=== PATIENT | female | born 1955 | race Caucasian/White ===

== ENCOUNTER 2016-11-05 22:02 | Inpatient (IN) | payer BC ==
--- NOTE | ~2016-11-05 | CN ---
Consultation Report [address] [place]. [address] NAME: JOSE JACOBSON : 55 STATUS : ADM IN PAT#: [id number] AGE: 61 ADM/REG DATE : 11/05/16 MR#: [id number] REPORT SERV DATE: 11/06/16 DICTATED BY: MIR IVORY DATE: 11/06/16 REPORT STATUS : Draft TRANSCRIBED BY: EZEQUIEL DATE: 11/06/16 CONSULTATION DATE OF CONSULTATION: REASON FOR REFERRAL: Breast cancer. HISTORY OF PRESENT ILLNESS: Ms. Jacobson is a 61-year-old woman who has metastatic breast cancer that is triple negative. She is on [place] chemotherapy. She has metastases to the lung and liver. For approximately two weeks, she has had a dry hacking cough that has gradually worsened and associated with dyspnea and fever, it is now severe. She presented to the emergency room and has been admitted to the hospital. PAST MEDICAL HISTORY: 1. Breast cancer, on chemotherapy. 2. Abnormal germline genetic testing. REVIEW OF SYSTEMS: Complete review of systems was negative except as per the HPI. PHYSICAL EXAMINATION: GENERAL: Reveals a well-developed woman who is obviously uncomfortable. CARDIAC: She has a regular rate and rhythm. LUNGS: Coarse breath sounds bilaterally. DATA REVIEW: Chest x-ray shows a right hilar mass and right upper lobe consolidation versus infiltrate. CMP shows normal liver tests. There is a normal troponin. Creatinine is 0.78. CBC shows hemoglobin 8.1, WBC 8.1, platelets 234,000, MCV is 78.8. ASSESSMENT: 1. Breast cancer, metastatic, on chemotherapy. I am worried about progression. We will add a CT scan of the abdomen and pelvis to the CT scan of the chest. 2. Anemia. Check iron studies. 3. Pneumonia, on IV antibiotics, inhalers and steroids. We will follow with you. SHARLA/EZEQUIEL Mir Consultation Report [address] [place]. [address] NAME: JOSE JACOBSON EHSAN : 55 STATUS : ADM IN PAT#: [id number] AGE: 61 ADM/REG DATE : 11/05/16 MR#: [id number] REPORT SERV DATE: 11/06/16 DICTATED BY: MIR IVORY DATE: 11/06/16 REPORT STATUS : Draft TRANSCRIBED BY: MODL DATE: 11/06/16 Ady Ivory / [id number] CC: Lucho Echevarria MD
--- NOTE | ~2016-11-05 | DS ---
Discharge Summary [facility] [address] [place]. [address] NAME: JOSE JACOBSON : 55 STATUS : DIS IN PAT#: [id number] AGE: 61 ADM/REG DATE : 11/05/16 MR#: [id number] REPORT SERV DATE: 11/08/16 DICTATED BY: LUCHO WALKER DATE: 11/07/16 REPORT STATUS : Draft TRANSCRIBED BY: MODL DATE: 11/07/16 ADMISSION DATE: 11/05/2016 DISCHARGE DATE: 11/07/2016 DISCHARGE DIAGNOSES: 1. Metastatic triple negative breast cancer with metastatic disease to lungs and bones. The patient follows with Dr. Child. 2. Postobstructive pneumonia with sepsis. 3. Reactive airway disease. CONSULTS: Oncology, Dr. Child. PROCEDURES: None. IMAGES: CT of the chest, abdomen, and pelvis revealed 1. Enlarging right upper lobe lung mass that measures 6.7 x 5.8 cm which likely represented a lung carcinoma. 2. Enlarging bilateral mediastinal and hilar adenopathy consistent with metastatic disease. 3. Postobstructive pneumonitis in the right upper lobe. 4. Inhomogeneous fatty infiltration of the liver without evidence of metastatic disease. 5. Severely atrophic left kidney related to severe hydronephrosis, this is a chronic finding. 6. Multiple small lytic lesions within the T-spine involving the T3, T4, T6, and T8 consistent with metastatic disease. HOSPITAL COURSE: This is a 61-year-old lady who was admitted to the hospital with a right upper lung infiltrate versus lung mass. For details please refer to H and P by Dr. Griffith. The patient was admitted and was started on broad-spectrum antibiotics with vancomycin and cefepime. By the second day of the hospital stay, patient remained afebrile and hemodynamically stable with normal white blood cell count. CT of the chest, abdomen, and pelvis was performed on the second day, and after that the patient's antibiotics were deescalated to doxycycline. The patient was seen by Dr. Child who felt that the patient may benefit from radiation therapy to the lung mass as an outpatient. The patient showed significant clinical improvement with supportive care along with antitussives. The patient also seemed to have responded to antibiotic therapy. Throughout the entire hospital stay, the patient remained afebrile with normal white blood cell count. The patient also has been on room air without any difficulty breathing at baseline. The patient is now being discharged home with close outpatient followup plans with Dr. Child. DISCHARGE MEDICATIONS: 1. Tessalon Perles 100 mg p.o. t.i.d. p.r.n. 2. Doxycycline 100 mg p.o. b.i.d. x5 additional days. 3. Prednisone 40 mg p.o. daily for 3 additional days. Otherwise, no changes to home medications. Discharge Summary [address] [address] NAME: JOSE JACOBSON : 55 STATUS : DIS IN PAT#: [id number] AGE: 61 ADM/REG DATE : 11/05/16 MR#: [id number] REPORT SERV DATE: 11/08/16 DICTATED BY: LUCHO WALKER DATE: 11/07/16 REPORT STATUS : Draft TRANSCRIBED BY: EZEQUIEL DATE: 11/07/16 DISPOSITION: Home. FOLLOWUP: Please follow up with Dr. Child next Thursday as already scheduled. A total of 25 minutes spent in coordinating this patient's discharge today. Emery/EZEQUIEL Lucho Walker MD / [id number] CC: Lucho Walker MD
--- NOTE | ~2016-11-05 | HP ---
History And Physical [place] [address] [facility] [place]. [address] NAME: JOSE JACOBSON : 55 STATUS : ADM IN PAT#: [id number] AGE: 61 ADM/REG DATE : 11/05/16 MR#: [id number] REPORT SERV DATE: 11/06/16 DICTATED BY: DEVON KAISER DATE: 11/06/16 REPORT STATUS : Draft TRANSCRIBED BY: MODL DATE: 11/06/16 DATE OF ADMISSION: 11/05/2016 CHIEF COMPLAINT: This 61-year-old female, presenting with metastatic breast cancer and now evidence of increasing shortness of breath with fevers. HISTORY OF PRESENTING ILLNESS: The patient's history was obtained through careful interview with the patient and her coupled with [facility] and [facility] medical records. The patient has metastatic breast cancer in 2014 that is considered "triple negative" followed by Dr. Child and Dr. Leblanc, radiation oncologist. She has known bony metastases and has undergone chemotherapy and radiation therapy apparently. Her last chemotherapy was just on the day prior to admission, she seemed to tolerate it well, but then on the day leading up to this admission had developed diaphoresis and a fever up to 102.0. She had no chills. This patient states that she has been having respiratory issues for several months, but it has progressed over these last few weeks. She describes a cough productive of a clear sputum. She has had shortness of breath characterized by dyspnea on exertion with a prominent wheeze. She has had lightheadedness associated with exertion and shortness of breath. She recently had finished a complete course of a Z-Herson without any improvement. She describes the chest discomfort "all through" her chest, really nonfocal, but it is a sharp discomfort, exacerbated by coughing, and deep breathing and exertion, a 7/10 severity. No nausea or vomiting. No change of bowel or bladder habit. No abdominal pain. No confusion. REVIEW OF SYSTEMS: Otherwise, a 14-point review of systems was obtained and was negative. PAST MEDICAL HISTORY: 1. Breast cancer, diagnosed 2014, triple negative, followed by Dr. Child and Dr. Leblanc with bony metastases. 2. Gastroesophageal reflux disorder. 3. Depression. 4. Hypothyroidism. 5. Atrophic kidney. 6. Left hydronephrosis, seen by Dr. Yepez. 7. Pneumonia. 8. Elevated cholesterol. PAST SURGICAL HISTORY: 1. Left mastectomy. History And Physical [address] [address] NAME: JOSE JACOBSON : 55 STATUS : ADM IN PAT#: [id number] AGE: 61 ADM/REG DATE : 11/05/16 MR#: [id number] REPORT SERV DATE: 11/06/16 DICTATED BY: DEVON KAISER DATE: 11/06/16 REPORT STATUS : Draft TRANSCRIBED BY: EZEQUIEL DATE: 11/06/16 2. Right hip surgery. 3. Appendectomy. ALLERGIES: PENICILLIN, CRESTOR, MORPHINE, LEVAQUIN, STATIN. SOCIAL HISTORY: No tobacco abuse. Drinks alcohol socially. She is . Has no children. 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 FAMILY HISTORY: Mother with breast cancer. Father with prostate cancer. CURRENT MEDICATIONS: Include Z-Herson completed on 11/04/2016, calcium, vitamin D, Prozac 20 mg p.o. daily, Synthroid 100 mcg daily, omeprazole 20 mg daily, Zofran p.r.n., and chemotherapy. PHYSICAL EXAMINATION: VITAL SIGNS: Temperature 102.0, pulse 110, blood pressure 113/68, respiratory rate 23, O2 saturation 93% on room air. GENERAL: A pleasant, cooperative female, distressed from coughing. HEENT: Pupils equal, round, and reactive to light. No conjunctival pallor. No scleral icterus. Nares are patent. Oropharynx is clear of obstruction. Moist mucous membranes. NECK: Trachea midline. No thyromegaly. LYMPH: No cervical lymphadenopathy. No supraclavicular lymphadenopathy RESPIRATORY: The patient has prominent expiratory wheeze on exam. Harsh upper respiratory rhonchi. There is diminished breath sounds throughout portions of her right lung, but I do not appreciate focal egophony. The patient has a labored respiratory effort. CARDIOVASCULAR: Tachycardic. Regular rhythm. No murmurs, rubs, or gallops. No extremity edema is appreciated. ABDOMEN: Soft, nontender, nondistended. Normal bowel sounds auscultated throughout. No hepatosplenomegaly. DERMATOLOGICAL: Warm and dry. EXTREMITIES: No pallor. No cyanosis. PSYCHIATRIC: Normal affect. Good mood. Alert and oriented x3. LABORATORY DATA: White blood count 7.4, hemoglobin 9.1, hematocrit 29.3, platelets 513. Sodium 142, potassium 4.1, chloride 108, bicarb 24, BUN 12, creatinine 0.91, glucose 115, albumin 2.4. Mononucleosis screen negative. Influenza negative. Lactic acid 1.6. Liver enzymes within limits. STUDIES: Chest x-ray by my own evaluation shows right upper lung pneumonia or mass. ASSESSMENT AND PLAN: 1. Sepsis. Presumptive diagnosis, post chemotherapy with fever of 102.0, tachycardia, tachypnea. Stable white blood cell though of 7.4 and normal lactic acid, but the patient may have infiltrate in the right upper lung. Check blood cultures. Place on empiric IV cefepime and IV vancomycin for now. 2. Right lung mass/infiltrate. Check a CT scan of the chest with contrast on the morning of 11/06/2016. History And Physical [address] [address] NAME: JOSE JACOBSON : 55 STATUS : ADM IN [facility]#: [id number] AGE: 61 ADM/REG DATE : 11/05/16 MR#: [id number] REPORT SERV DATE: 11/06/16 DICTATED BY: DEVON KAISER DATE: 11/06/16 REPORT STATUS : Draft TRANSCRIBED BY: EZEQUIEL DATE: 11/06/16 3. Metastatic breast cancer to the bones with chemotherapy and radiation. Consult Dr. Child, oncologist. 4. Reactive airway disease with prominent wheeze. Place on Solu-Medrol IV and DuoNeb nebulizers. KPL/MODDary Devon Kaiser M.D. / [id number] CC: MD Claudia Augustin M.D. Edward Arrowsmith, M.D.
[2016-11-05 20:38] LABS: BASOPHILS 0.3 %; BASOPHILS ABSOLUTE 0.02 10/3/uL (0.0-0.16); EOSINOPHILS 0 %; HEMATOCRIT 29.3 % (36.0-48.0); HEMOGLOBIN 9.1 g/dL (12.0-16.0); IMMATURE GRANULOCYTES 0.1 %; IMMATURE GRANULOCYTES ABSOLUTE 0.01 10/3/uL (0.0-0.11); LYMPHOCYTES 11.9 %; LYMPHOCYTES ABSOLUTE 0.88 10/3/uL (0.67-4.30); MANUAL DIFF NO %; MEAN CORPUS HGB CONC 31.1 g/dL (32.0-36.0); MEAN CORPUSCULAR HEMOGLOB 24.3 pg (26.0-34.0); MEAN CORPUSCULAR VOLUME 78.3 fL (80-100); MEAN PLATELET VOLUME 8.8 fL (9.2-13.0); MONOCYTES 7.8 %; MONOCYTES ABSOLUTE 0.58 10/3/uL (0.21-1.20); NEUTROPHILS 79.9 %; NEUTROPHILS ABSOLUTE 5.93 10/3/uL (2.02-8.40); PLATELET COUNT 513 10/3/uL (150-400); RBC DISTRIBUTION WIDTH 20.7 % (12.0-16.0); RED CELL COUNT 3.74 10/6/uL (4.0-5.6); WHITE BLOOD CELLS 7.4 10/3/uL (4.5-10.5)
[2016-11-05 20:45] LABS: ASCORBIC ACID (UR NOT ORDER) NEG (NEG); BILIRUBIN, URINE NEGATIVE (NEG); ER URINALYSIS TAT 0 Hrs 11 Mins; KETONE, URINE NEGATIVE (NEG); LEUKOCYTE ESTERASE(NOT OR NEG (NEG); NITRITE (URINE) NEG (NEG); WBC (NOT ORDERED) (RFLEX) 2 (0-5)
[2016-11-05 20:56] LABS: A/G RATIO 0.6 (0.7-1.9); ALBUMIN 2.4 G/DL (3.5-5.0); ALKALINE PHOSPHATASE 97 U/L (45-117); CALCIUM, SERUM 7.9 MG/DL (8.5-10.4); CHLORIDE, SERUM 108 MMOL/L (96-112); CO2 (CARBON DIOXIDE) 24 MMOL/L (24-34); CREATININE 0.91 MG/DL (0.55-1.02); GFR AFRICAN AMERICAN 79 ML/MIN (>=60); GFR NON AFRICAN AMERICAN 68 ML/MIN (>=60); GLOBULIN 3.9 G/DL (2.5-4.1); POTASSIUM, SERUM 4.1 MMOL/L (3.5-5.3); SGOT(AST) 39 U/L (5-40); SGPT(ALT) 23 U/L (5-65); SODIUM, SERUM 142 MMOL/L (135-148); TOTAL BILIRUBIN 0.7 MG/DL (0-1.2); TOTAL PROTEIN 6.3 G/DL (6.0-8.5)
[2016-11-05 20:57] LABS: BUN (BLOOD UREA NITROGEN) 12 MG/DL (6-23); GLUCOSE, SERUM 115 MG/DL (60-99)
[~2016-11-05 22:02] MED LIST: ACET500CAP PO; ASAB PO; C5 PO; DETROLLA4 PO; ENDOCET1 TAB PO; HERBALS; HYCODAN1 M1 PO; LEVOTHYROXIN100 MCG PO; MUCINEX600 MG PO; MULTIVIT/MIN PO; PCET PO; PRILO PO; PROAIR HFA INH; PROZAC PO; ULTRAM50 PO; VITAMINS
[2016-11-05 22:10] LABS: LACTATE 1.6 MMOL/L (0.3-2.4)
[2016-11-05 22:13] LABS: INFLUENZA A SCREEN NEGATIVE (NEGATIVE); INFLUENZA B SCREEN NEGATIVE (NEGATIVE)
[2016-11-05] MEDS ORDERED: SYN1 PO (22:57)
[2016-11-05] MEDS ORDERED: Z-PAK PO (22:58)
[2016-11-05] MEDS ORDERED: PRILOSEC OTC20 MG PO (22:58)
[2016-11-05] MEDS ORDERED: CALTRA600D PO (22:59)
[2016-11-05] MEDS ORDERED: PROZAC PO (22:59)
[2016-11-05] MEDS ORDERED: ZOFRANODT8 PO (23:03)
[2016-11-05] MEDS ORDERED: CALCIUM IV (23:03)
[2016-11-05] MEDS ORDERED: CHEMOTHERAPY (23:06)
[2016-11-06 04:51] LABS: BASOPHILS 0.1 %; BASOPHILS ABSOLUTE 0.01 10/3/uL (0.0-0.16); EOSINOPHILS 0 %; HEMOGLOBIN 8.1 g/dL (12.0-16.0); IMMATURE GRANULOCYTES 0.4 %; IMMATURE GRANULOCYTES ABSOLUTE 0.03 10/3/uL (0.0-0.11); LYMPHOCYTES 8.7 %; LYMPHOCYTES ABSOLUTE 0.71 10/3/uL (0.67-4.30); MEAN CORPUS HGB CONC 31.6 g/dL (32.0-36.0); MEAN CORPUSCULAR HEMOGLOB 24.9 pg (26.0-34.0); MEAN CORPUSCULAR VOLUME 78.8 fL (80-100); MEAN PLATELET VOLUME 8.7 fL (9.2-13.0); MONOCYTES 6.3 %; MONOCYTES ABSOLUTE 0.51 10/3/uL (0.21-1.20); NEUTROPHILS 84.5 %; NEUTROPHILS ABSOLUTE 6.87 10/3/uL (2.02-8.40); PLATELET COUNT 434 10/3/uL (150-400); RBC DISTRIBUTION WIDTH 20.7 % (12.0-16.0); RED CELL COUNT 3.25 10/6/uL (4.0-5.6); WHITE BLOOD CELLS 8.1 10/3/uL (4.5-10.5)
[2016-11-06 04:54] LABS: HEMATOCRIT 25.6 % (36.0-48.0); MANUAL DIFF NO %
[2016-11-06 04:57] LABS: INTERNATIONAL NORMAL RATI 1.2 UNITS (-); PROTIME (NOT ORD) 15.1 SEC (12.0-14.5)
[2016-11-06 04:58] LABS: PARTIAL THROMBO TIME 35.9 SEC (22.5-37.2)
[2016-11-06 05:20] LABS: A/G RATIO 0.8 (0.7-1.9); ALBUMIN 2.6 G/DL (3.5-5.0); BUN (BLOOD UREA NITROGEN) 10 MG/DL (6-23); CALCIUM, SERUM 7.7 MG/DL (8.5-10.4); CHLORIDE, SERUM 111 MMOL/L (96-112); CO2 (CARBON DIOXIDE) 22 MMOL/L (24-34); CREATININE 0.78 MG/DL (0.55-1.02); GFR AFRICAN AMERICAN 95 ML/MIN (>=60); GFR NON AFRICAN AMERICAN 82 ML/MIN (>=60); GLOBULIN 3.4 G/DL (2.5-4.1); GLUCOSE, SERUM 115 MG/DL (60-99); SGOT(AST) 33 U/L (5-40); SGPT(ALT) 20 U/L (5-65); SODIUM, SERUM 143 MMOL/L (135-148); TOTAL BILIRUBIN 0.4 MG/DL (0-1.2); TROPONIN I <0.02 NG/ML (<0.05)
[2016-11-06 05:26] LABS: ALKALINE PHOSPHATASE 79 U/L (45-117)
[2016-11-06 09:39] LABS: FERRITIN 376 NG/ML (8-252)
[2016-11-07 05:20] LABS: BASOPHILS 0 %; EOSINOPHILS 0 %; HEMATOCRIT 26.2 % (36.0-48.0); HEMOGLOBIN 8.2 g/dL (12.0-16.0); IMMATURE GRANULOCYTES 0.3 %; IMMATURE GRANULOCYTES ABSOLUTE 0.02 10/3/uL (0.0-0.11); LYMPHOCYTES 4.6 %; LYMPHOCYTES ABSOLUTE 0.36 10/3/uL (0.67-4.30); MEAN CORPUS HGB CONC 31.3 g/dL (32.0-36.0); MEAN CORPUSCULAR HEMOGLOB 24.6 pg (26.0-34.0); MEAN CORPUSCULAR VOLUME 78.7 fL (80-100); MEAN PLATELET VOLUME 8.5 fL (9.2-13.0); MONOCYTES 2.3 %; MONOCYTES ABSOLUTE 0.18 10/3/uL (0.21-1.20); NEUTROPHILS 92.8 %; NEUTROPHILS ABSOLUTE 7.27 10/3/uL (2.02-8.40); PLATELET COUNT 379 10/3/uL (150-400); RBC DISTRIBUTION WIDTH 21.1 % (12.0-16.0); RED CELL COUNT 3.33 10/6/uL (4.0-5.6); WHITE BLOOD CELLS 7.8 10/3/uL (4.5-10.5)
[2016-11-07 05:23] LABS: MANUAL DIFF NO %
[2016-11-07 05:47] LABS: BUN (BLOOD UREA NITROGEN) 12 MG/DL (6-23); CHLORIDE, SERUM 112 MMOL/L (96-112); CO2 (CARBON DIOXIDE) 21 MMOL/L (24-34); CREATININE 0.82 MG/DL (0.55-1.02); GFR AFRICAN AMERICAN 90 ML/MIN (>=60); GFR NON AFRICAN AMERICAN 77 ML/MIN (>=60); POTASSIUM, SERUM 4.4 MMOL/L (3.5-5.3); SODIUM, SERUM 143 MMOL/L (135-148)
[2016-11-07 05:50] LABS: GLUCOSE, SERUM 187 MG/DL (60-99)
[2016-11-07] MEDS ORDERED: TESS PO (10:39)
[2016-11-07] MEDS ORDERED: MEDROLPAK4 PO (10:41)
[2016-11-07] MEDS ORDERED: MONODOX100 MG PO (10:41)
== END 2016-11-07 12:46 | disposition home or self-care (01) | DRG 871 ==
LOC: ER 22:02 → 6NO 22:48
PROVIDERS: Emergency Medicine; Hospitalist; Internal Medicine; Nurse Practitioner
DX: A41.9 Sepsis, unspecified organism (principal); J18.9 Pneumonia, unspecified organism; C78.00 Secondary malignant neoplasm of unspecified lung; C79.51 Secondary malignant neoplasm of bone; N13.30 Unspecified hydronephrosis; F32.9 Major depressive disorder, single episode, unspecified; E03.9 Hypothyroidism, unspecified; Z87.01 Personal history of pneumonia (recurrent); E78.00 Pure hypercholesterolemia, unspecified; J45.909 Unspecified asthma, uncomplicated; N26.1 Atrophy of kidney (terminal); K21.9 Gastro-esophageal reflux disease without esophagitis; D64.9 Anemia, unspecified; Z85.3 Personal history of malignant neoplasm of breast; Z88.0 Allergy status to penicillin; Z90.12 Acquired absence of left breast and nipple; Z88.8 Allergy status to other drugs, medicaments and biological substances; Z88.5 Allergy status to narcotic agent; Z88.1 Allergy status to other antibiotic agents; Z92.21 Personal history of antineoplastic chemotherapy; Z92.3 Personal history of irradiation
CPT/HCPCS: 71020; 71260; 74177; 80048; 80053; 81001; 82728; 83605; 83735; 83880; 84145; 84443; 84484; 85025; 85610; 85730; 86308; 87040; 87070; 87205; 87449; 87804; 94640; 99285; A9270-GY; J0692; J2920; J3370; P9047; Q9967

== ENCOUNTER 2016-11-15 19:22 | Inpatient (IN) | payer BC ==
--- NOTE | ~2016-11-15 | OP ---
Record Of Operation [facility] [address] [place]. [address] NAME: JOSE JACOBSON : 55 STATUS : ADM IN PAT#: [id number] AGE: 61 ADM/REG DATE : 11/15/16 MR#: [id number] REPORT SERV DATE: 11/26/16 DICTATED BY: YINKA WHELAN DATE: 11/26/16 REPORT STATUS : Draft TRANSCRIBED BY: EZEQUIEL DATE: 11/26/16 DATE OF PROCEDURE: 11/26/2016 PREOPERATIVE DIAGNOSIS: Metastatic breast cancer. POSTOPERATIVE DIAGNOSIS: Metastatic breast cancer. OPERATION PERFORMED: Right internal jugular Port-A-Cath placement under ultrasound and fluoroscopic guidance. SURGEON: Yinka Whelan M.D. ANESTHESIA: General. ESTIMATED BLOOD LOSS: Less than 10 mL. IV FLUIDS: Adequate. DESCRIPTION OF OPERATION: After appropriate sedation, the patient was prepped and draped in proper sterile fashion. Ultrasound probe was placed over the right neck. She had a patent and pliable right internal jugular vein. Right chest wall and right neck were infiltrated with local anesthesia. Right internal jugular vein was cannulated using a 14-gauge needle under ultrasound guidance. A guidewire was fed under fluoroscopic guidance just above the right heart. A transverse incision was made at the right chest wall. Subcutaneous tissues were incised down to pectoralis fascia, and pocket was bluntly dissected. Introducer sheath was placed over the guidewire. A catheter was then fed through the introducer sheath with the tip being just above the right heart under fluoroscopic guidance. The catheter was tunneled subcutaneously to the port pocket and secured to the port. Port was secured to the chest wall using 3-0 Vicryl suture. The port was flushed and aspirated, flushed and aspirated easily. The skin was closed using interrupted 3-0 Vicryl sutures. Steri-Strips and dressings were then placed. The patient was taken to the recovery room in satisfactory condition. MARIE/EZEQUIEL Yinka Whelan M.D. / [id number] CC: MD Claudia Junior II, M.D.
--- NOTE | ~2016-11-15 | OP ---
Record Of Operation [facility] [address] [place]. [address] NAME: JOSE JACOBSON : 55 STATUS : ADM IN PAT#: [id number] AGE: 61 ADM/REG DATE : 11/15/16 MR#: [id number] REPORT SERV DATE: 11/19/16 DICTATED BY: ANGELA APPIAH DATE: 11/19/16 REPORT STATUS : Draft TRANSCRIBED BY: MODL DATE: 11/19/16 DATE OF PROCEDURE: 11/19/2016 PROCEDURE: Bronchoscopy with bronchoalveolar lavage, airway inspection, endobronchial ultrasound and transbronchial needle aspiration. PREOPERATIVE DIAGNOSIS: Cancer, not otherwise specified. POSTOPERATIVE DIAGNOSIS: Endobronchial cancer and lung cancer, unknown if this is a primary or metastatic. PROCEDURE NOTE: The patient was brought down to the bronchoscopy suite, the patient was placed with an LMA for airway protection, and Anesthesia provided the general anesthesia. We inserted the bronchoscope through the vocal cords, lidocaine down the trachea. The patient had a definite endobronchial disease above the alissa, right greater than left on the trachea and greater than 50% right mainstem occlusion. She does have a tumor blocking the right upper lobe and the past that she has endobronchial erythema and swelling all the way down to the right middle lobe orifice, presumably probably also invasion of the tumor down to the right BI. There was easy friability of the tumor. We obtained a BAL from the right middle lobe. Left side had no significant abnormalities. We then switched to the endobronchial ultrasound and the patient had significant amount of tumor throughout the right mainstem and above the alissa. We obtained a transbronchial needle aspiration via EBUS of the ATS 4R lymph node, which almost seemed to be confluent with the tumor. We obtained two slides and eight cell blocks for total of 10 passes. Pathology reviewed the cases, which was consistent with underlying cancer of unknown etiology at this moment in time. OUTCOME: Successful bronchoscopy with airway inspection, lavage of the right middle lobe, and a biopsy of the right upper lobe tumor. Current recommendation is to have Interventional Pulmonary evaluate this patient for what most likely needs to have an underlying Y stent versus other modality. Also, we will discuss the need of possible radiation at this site. NICOLEQ/EZEQUIEL Angela Appiah MD / [id number] CC: MD Claudia Healy M.D.
--- NOTE | ~2016-11-15 | CN ---
Consultation Report [facility] [address] [place]. [address] NAME: JOSE JACOBSON : 55 STATUS : ADM IN [facility]#: [id number] AGE: 61 ADM/REG DATE : 11/15/16 MR#: [id number] REPORT SERV DATE: 11/18/16 DICTATED BY: ANGELA APPIAH DATE: 11/17/16 REPORT STATUS : Draft TRANSCRIBED BY: MODDary DATE: 11/17/16 CONSULTATION NOTE DATE OF CONSULTATION: 11/17/2016 REQUESTING PHYSICIAN: Umair Boss II, MD REASON FOR CONSULTATION: Fevers, chills, and concern of postobstructive pneumonia. HISTORY OF PRESENT ILLNESS: Mrs. Jacobson is a 61-year-old female, with a past medical history of known metastatic breast cancer, who has a new lesion in the right upper lobe with what looks to be a postobstructive pneumonia. The patient states that her symptoms have started over the last several days. These symptoms of fevers and chills continue to become worse, she is producing a very little amount of sputum. She presented back to the hospital, due to these symptoms and had a CT scan, which shows the above-named abnormalities. Primary team was concerned of a postobstructive pneumonia. The patient is to start radiation to this site here in the next several days. PAST MEDICAL HISTORY: Metastatic breast cancer, with mets to the lung and bone. However, this has not been biopsied as far as I can tell. Hypothyroidism, left mastectomy, right hip surgery, and appendectomy. MEDICATIONS: Medication list reviewed, the patient is on Lovenox, antibiotics, DuoNeb, meropenem, and vancomycin. ALLERGIES: ROSUVASTATIN, PENICILLIN, SIMVASTATIN, LEVAQUIN, AND MORPHINE. SOCIAL HISTORY: No alcohol use that is considered daily. She is with at the bedside. No tobacco use. FAMILY HISTORY: Father had prostate cancer and mother had breast cancer. REVIEW OF SYSTEMS: All pertinent review of systems are reviewed and is otherwise negative. PHYSICAL EXAMINATION: VITAL SIGNS: Temperature maximum 102.3, heart rate around 95 to 114, respiratory rate 18 to 20, oxygen saturation around 93% to 96% on 1 L nasal cannula, and blood pressure is adequate. GENERAL: The patient is alert and oriented, in no acute distress. HEENT: No cervical lymphadenopathy. NECK: Supple. PULMONARY: The patient has mild rhonchorous breath sounds, but otherwise, no wheezing. Good air movement. Consultation Report [address] [place]. [address] NAME: JOSE JACOBSON : 55 STATUS : ADM IN [facility]#: [id number] AGE: 61 ADM/REG DATE : 11/15/16 MR#: [id number] REPORT SERV DATE: 11/18/16 DICTATED BY: ANGELA APPIAH DATE: 11/17/16 REPORT STATUS : Draft TRANSCRIBED BY: EZEQUIEL DATE: 11/17/16 CARDIAC: Regular rate, no murmurs. ABDOMEN: Soft, nontender, and nondistended. EXTREMITIES: No lower extremity edema. LABORATORY DATA: Anemia is noted with mild lymphopenia. Platelet count is 419. Negative procalcitonin. INR 1.2. Good kidney function. IMAGING: CT scan, which shows the encroaching right upper lobe mass. ASSESSMENT AND PLAN: Mrs. Jacobson is a 61-year-old female, with a past medical history noted above, who presents with possibly a right upper lobe, either primary neoplasm versus metastatic breast cancer. We will conduct an airway examination, bronchoscopy for biopsy, and bronchoalveolar lavage. If patient needs more extensive treatment such as stent placement and/or tumor debulking, may consider Interventional Pulmonary consultation. The patient is to get a right upper lobe radiation which made negate the need for Interventional Pulmonary, however, the patient's clinical course will be examined. Thank you very much for this consultation and allowing us to participate in your patient's care. Please call us with any further questions or concerns, we will continue to follow. HFQ/EZEQUIEL Angela Appiah MD / [id number] CC: MD Claudia Junior II, M.D.
--- NOTE | ~2016-11-15 | HP ---
History And Physical [address] [place]. [address] NAME: JOSE JACOBSON : 55 STATUS : ADM IN [facility]#: [id number] AGE: 61 ADM/REG DATE : 11/15/16 MR#: [id number] REPORT SERV DATE: 11/16/16 DICTATED BY: EDUARDO DALEY DATE: 11/15/16 REPORT STATUS : Draft TRANSCRIBED BY: MODL DATE: 11/15/16 DATE OF ADMISSION: 11/15/2016 CHIEF COMPLAINT: Fever and chills. HISTORY OF PRESENT ILLNESS: This is a 61-year-old female with a history of metastatic breast cancer to the lung and bone, on chemotherapy, followed by Dr. Child, who presents to the emergency room at [facility] with the above- mentioned complaint. History is obtained from the patient, her who is at bedside, and reviewing data available on the [facility] system. According to Mrs. Jacobson, she was being treated for her cancer, and she recently has been found to have a lung mass with possibly compression on to the bronchus, followed by postobstructive pneumonia for which she was treated as an inpatient last week. She had IV antibiotics, which were be escalated and then she was sent home. Unfortunately after she got home, a couple of days later, her symptoms returned. She started having some low-grade fevers. But in the last three to four days, she started having increasing temperatures, and her says it has been up to 103 degrees Fahrenheit. They finally decided to come to the emergency room because today and the day before, she started having chills and weakness as well. In the emergency room, initial workup revealed that she had a febrile illness, sepsis and chest x-ray showed right mediastinal mass, which is slightly improved compared to prior films. She also presented with hypotension with a blood pressure of 94/57. Hospitalist Service was asked to admit her for further evaluation and treatment. At the time of my evaluation, she denied any chest pain or palpitations. She had no orthopnea. She did have an intractable cough, which was productive of clear sputum without any purulent material or blood. She had no night sweats or weight loss. She has had no recent falls or loss of consciousness. She did have fever and chills at home as mentioned above, up to 103 degrees Fahrenheit. She has had no nausea, vomiting, diarrhea, hematemesis, hematochezia, or hematuria. No other history of recent travel or exposures. She is scheduled to start radiation therapy in about three to four days. PAST MEDICAL HISTORY: Significant for metastatic breast cancer with mets to the lung and bone especially the spine and has just finished chemotherapy, followed by Dr. Child. She has hypothyroidism, atrophic left kidney, and recent post obstructive pneumonia as well. She has had a left mastectomy, right hip surgery, and appendectomy. SOCIAL HISTORY: She does not smoke, drink, or use recreational drugs. FAMILY HISTORY: Noncontributory. MEDICATIONS: At home were reviewed by me in the chart today and reordered by me. REVIEW OF SYSTEMS: History And Physical [address] [address] NAME: JOSE JACOBSON : 55 STATUS : ADM IN [facility]#: [id number] AGE: 61 ADM/REG DATE : 11/15/16 MR#: [id number] REPORT SERV DATE: 11/16/16 DICTATED BY: EDUARDO DALEY DATE: 11/15/16 REPORT STATUS : Draft TRANSCRIBED BY: EZEQUIEL DATE: 11/15/16 As in history of present illness. All other systems were reviewed in detail and are quite unremarkable. PHYSICAL EXAMINATION: GENERAL: This is a pleasant 61-year-old, not in any acute distress. HEENT: Her head is atraumatic, normocephalic. She is alert, awake, oriented to time, place, and person. Pupils are equal, reacting to light and accommodating. External ocular muscles are intact. Membranes are moist and pink. Sclerae are nonicteric. NECK: Supple with no jugular venous distention, lymphadenopathy, or thyromegaly. LUNGS: Clear to auscultation with no wheezes, rubs, or crackles. HEART: Heart sounds were regular with no murmurs, rubs, or gallops. ABDOMEN: Soft, nontender. Bowel sounds are present. EXTREMITIES: Showed no cyanosis, clubbing, or edema. NEUROLOGIC: Grossly intact. No focal sensory or motor deficits. Higher functions appeared intact. Gait was not examined. VITAL SIGNS: Her vital signs today showed a temperature of 103.2 degrees Fahrenheit, pulse 125, respirations 20 a minute, blood pressure upon arrival was 94/57, oxygen saturations were 95%, breathing 2 L of oxygen via nasal cannula. LABORATORY DATA: Reviewed on the [facility] system showed a sodium of 140, potassium 4.5, chloride 108, CO2 of 24, BUN was 12 with a creatinine of 1.06, blood glucose was 111, calcium was 7.8 today. Magnesium was not checked. Her troponin was 0.02. BNP was 13.6. Lactate was 1.4. CBC showed a white blood cell count of 3300, hemoglobin was 8.8, hematocrit 28.5, and platelet count was 565,000. Urinalysis was grossly unremarkable. Films of the chest x-ray were reviewed by me on the PACS today and interpreted by me. Today's films were compared to prior chest x-rays available on the PACS as well. Compared to prior films, the right mediastinal and lung mass have resolved to a slight degree. There is no other lobar consolidations or effusions seen. A 12-lead EKG done in the emergency room was reviewed and interpreted by me. Per my interpretation, there is sinus tachycardia at a rate of 124 without any other changes. IMPRESSION: 1. Febrile illness. 2. Sepsis. 3. Postobstructive pneumonia and sepsis. 4. Metastatic breast cancer with mets to the lung and bone, status post chemotherapy. 5. Hypotension. 6. Hypothyroidism. PLAN: We will admit Mrs. Jacobson to the Hospitalist Service with telemetry for close monitoring. After cultures are drawn, we will start her on empiric IV antibiotics and bolus with fluids and continue maintenance therapy as well. We will also follow her lactate levels and procalcitonin levels. Check her random cortisol level. We will add bronchodilators and continue her supplemental oxygen therapy and add mucolytics to her regimen as well. She will also be provided with antitussives. We will check her thyroid function and continue replacement therapy and place her on low molecular weight heparin for DVT prophylaxis while here. We will also consult Dr. Child to see her while she is History And Physical [address] [place]. [address] NAME: JOSE JACOBSON : 55 STATUS : ADM IN [facility]#: [id number] AGE: 61 ADM/REG DATE : 11/15/16 MR#: [id number] REPORT SERV DATE: 11/16/16 DICTATED BY: EDUARDO DALEY DATE: 11/15/16 REPORT STATUS : Draft TRANSCRIBED BY: EZEQUIEL DATE: 11/15/16 here. I have discussed the above plans with the patient and her . Questions were answered. They are agreeable to the above recommendations. Please see today's orders for details. Hospitalist Service will be following her during her stay here. /EZEQUIEL Eduardo Daley M.D. / [id number] CC: MD Claudia Junior II, M.D.
--- NOTE | ~2016-11-15 | EGD ---
EGD REPORT [facility] [address] [place] [address] NAME: JOSE JACOBSON : 55 STATUS : ADM IN PAT#: [id number] AGE: 61 ADM/REG DATE : 11/15/16 MR#: [id number] REPORT SERV DATE: 11/24/16 DICTATED BY: NAHOMY ZHAO DATE: 11/24/16 REPORT STATUS : Draft TRANSCRIBED BY: [facility] DATE: 11/24/16 Pulmonology Patient Name: Jose Jacobson Procedure Date: 11/24/2016 10:04 AM Date of : 1955 Attending MD: GEOVANNA ZHAO MD Procedure Date No Time: 11/24/2016 Procedure: Flexible rigid bronchoscopy Indications: Right paratracheal mass with 75% obstruction of the right tracheobronchial angle. Unclear etiology. Spoke with Dr. Nina. Final path read as Non small cell lung cancer. Additional stains will be performed to assess for metastatic breast cancer. Providers: GEOVANNA ZHAO MD Referring MD: AGUSTIN LUTZ Medicines: Lidocaine 2% 20 mL Complications: No immediate complications Procedure: Pre-Anesthesia Assessment: - A History and Physical has been performed. Patient meds and allergies have been reviewed. The risks and benefits of the procedure and the sedation options and risks were discussed with the patient. All questions were answered and informed consent was obtained. Patient identification and proposed procedure were verified prior to the procedure by the physician and the nurse in the pre-procedure area in the procedure room. Mental Status Examination: alert and oriented. Airway Examination: normal oropharyngeal airway. Respiratory Examination: poor air movement. CV Examination: normal and RRR, no murmurs, no S3 or S4. ASA Grade Assessment: IV - A patient with severe systemic disease that is a constant threat to life. After reviewing the risks and benefits, the patient was deemed in satisfactory condition to undergo the procedure. The anesthesia plan was to use general anesthesia. Immediately prior to administration of medications, the patient was re-assessed for adequacy to receive sedatives. The heart rate, respiratory rate, oxygen saturations, blood pressure, adequacy of pulmonary ventilation, and response to care were monitored throughout the procedure. The physical status of the patient was re-assessed after the procedure. After obtaining informed consent, the Bronchoscope was introduced through the mouth, via the endotracheal tube (the patient was intubated for the procedure) and advanced to the tracheobronchial tree. the [id number] EGD REPORT [address] [address] NAME: JOSE JACOBSON : 55 STATUS : ADM IN [facility]#: [id number] AGE: 61 ADM/REG DATE : 11/15/16 MR#: [id number] REPORT SERV DATE: 11/24/16 DICTATED BY: NAHOMY ZHAO DATE: 11/24/16 REPORT STATUS : Draft TRANSCRIBED BY: [employer] DATE: 11/24/16 [id number] was introduced through the mouth, via the endotracheal tube (the patient was intubated for the procedure) and advanced to the tracheobronchial tree. The procedure was accomplished without difficulty. The patient tolerated the procedure well. Findings: The nasopharynx/oropharynx appears normal. The larynx appears normal. The vocal cords move normally with phonation and breathing. The subglottic space is normal. Right paratracheal mass with 75% obstruction of the right tracheobronchial angle with extrinsic compression. The RUL is infiltrated with tumor. EBUS TBNA of lymph node level 11L x 4 passes for cytology EBUS TBNA of lymph node level 4L x 4 passes for cytology EBUS TBNA of lymph node level 7 x 4 passes for cytology The FiO2 was lowered to less than 40% and argon plasma coagulation therapy was performed for destruction of tumor and hemostasis. Balloon bronchoplasty was performed with a CRE balloon 10-11-12 to 12 mm OD. There was no significant improvement in the dilation of the airway. The patient was then reintubated with a 12 mm rigid bronchoscope in the usual atraumatic fashion and selectively advanced into the FAY. A 14 x 40 mm Merit Hybrid Stent placed in the FAY/RBI jailing off the RUL. Impression: 1. Additional lymph node biopsies performed in the event patient has a new primary lung cancer vs metastatic breast. Final path from previous biopsies read as "non small lung cancer,NOS." However, stains for breast cancer were not completed and pending at this time. 2. 14 x 40 mm Merit Hybrid Stent placed in the FAY/RBI jailing off the RUL. Recommendation: - Await test results. - Chest X-ray. - Follow up with bronchoscopist tomorrow. - Mandatory nebulization therapy: Albuterol and Mucomyst Attending Participation: I personally performed the entire procedure. GEOVANNA ZHAO MD 11/24/2016 11:01 AM This report has been signed electronically. Number of Addenda: 0 Note Initiated On: 11/24/2016 10:04 AM [address] [address]
--- NOTE | ~2016-11-15 | IDS ---
Interim Discharge Summary [facility] [address] [place]. [address] NAME: JOSE JACOBSON : 55 STATUS : ADM IN [facility]#: [id number] AGE: 61 ADM/REG DATE : 11/15/16 MR#: [id number] REPORT SERV DATE: 11/24/16 DICTATED BY: ALEX ZHANG DATE: 11/24/16 REPORT STATUS : Draft TRANSCRIBED BY: MODDary DATE: 11/24/16 ADMISSION DATE: 11/15/2016 DISCHARGE DATE: DATE OF DISCHARGE: Unknown. DATE OF INTERIM NOTE: 10/25/2016. INTERIM DIAGNOSES: 1. Intractable cough, secondary to #2. 2. Endobronchial tumor, pathology positive non-small cell carcinoma. 3. Status post bronchoscopy on 11/19/2016. 4. Bronchoscopy with stent placement on 11/24/2016. 5. Possible postobstructive pneumonia. 6. Metastatic breast cancer. 7. Right hip pain, due to known metastasis to bone. 8. Anemia, due to metastatic breast cancer. CONSULTATIONS: Pulmonary Dr. Appiah on 11/17/2016. IMAGIN. Chest x-ray on 11/15/2016. Impression; chest x-ray demonstrates no significant improvement in the mediastinal hilar mass and trapped secretions in the right upper lobe. The remaining lung noonan are clear. 2. Chest x-ray on 11/21/2016. Impression; worsening right upper lobe consolidation, distal to larger right superior hilar mass concerning for worsening post obstructive pneumonia. Continued right superior hilar mass with hilar and AP window adenopathy. 3. Chest x-ray on 11/24/2016. Impression; right hilar mass with adjacent atelectasis/consolidation. Stent is placed in the right main bronchus. Mediastinal adenopathy. 4. Bronchoscopy on 11/19/2016. 5. Flexible rigid bronchoscopy with stent placement on 11/24/2016. Additional lymph node biopsy was performed in the event the patient has a new primary lung cancer versus metastatic disease. Pathology of previous biopsies read non-small cell lung cancer. COURSE OF HOSPITAL STAY: Please refer to history and physical dictated by Dr. Quinones on 11/15/2016 for complete admission details. This patient is a 61-year-old female, with a known history of metastatic breast cancer to the lung and bone. Currently, on chemotherapy under the care of Dr. Child. The patient did present to [facility] with complaints of fever and chills. Intractable cough secondary to endotracheal tumor. The patient has had ongoing cough, at this time, the patient has been given Robitussin and Tessalon Perles p.r.n. for cough. Pulmonology was consulted and evaluated the patient, and is currently following the patient. Interim Discharge Summary [address] [place]. [address] NAME: JOSE JACOBSON : 55 STATUS : ADM IN PAT#: [id number] AGE: 61 ADM/REG DATE : 11/15/16 MR#: [id number] REPORT SERV DATE: 11/24/16 DICTATED BY: ALEX ZHANG DATE: 11/24/16 REPORT STATUS : Draft TRANSCRIBED BY: EZEQUIEL DATE: 11/24/16 Endobrachial tumor, pathology positive for non-small cell carcinoma. The patient is undergoing radiation to the area. The patient has been followed by Pulmonology and has undergone a bronchoscopy on 11/19/[address] Appiah, and repeat bronch, due to worsening chest x-ray. Underwent stent placement on 11/24/[address] Buitrago. At this time, the patient is on nasal cannula 3 L. She is receiving DuoNeb treatments. The patient has been placed on Solu-Medrol as well. Possible postobstructive pneumonia. The patient has been on antibiotics since admission. The patient was started on cefepime and vancomycin upon admission, now the patient was started on Merrem on 11/17/2016. Vancomycin was discontinued on 11/22/2016. Repeat procalcitonin was noted at 0.47. The patient has been afebrile now for 24 hours. It is noted that the patient's WBC count is elevated at 16.0. We will continue to monitor. Metastatic breast cancer. The patient is followed by Dr. Child. The patient had been previously on chemotherapy. Re-evaluation of patient is ongoing at this time. The patient has requested Port-A-Cath placement per Dr. Child, he will discuss this following this admission. Right hip pain with known metastasis to the bone. The patient has had complaints of right hip pain. She is receiving at this time Dilaudid p.r.n. She has refused physical therapy assessment in the past, this has been an ongoing discussion. Anemia due to metastatic breast cancer. The patient's hemoglobin at this time is 9.5, hematocrit of 30.0, and has remained stable. She has received one transfusion. We will continue to monitor and transfuse p.r.n. DISPOSITION: At this time, discharge date is unknown. The case filler is following patient for needs upon discharge. This patient will be followed by Dr. Boss. [facility]/EZEQUIEL Alex Zhang NP / [id number] CC: MD Claudia Healy M.D.
--- NOTE | ~2016-11-15 | DS ---
Discharge Summary [facility] [address] [place]. [address] NAME: JOSE JACOBSON : 55 STATUS : DIS IN PAT#: [id number] AGE: 61 ADM/REG DATE : 11/15/16 MR#: [id number] REPORT SERV DATE: 11/29/16 DICTATED BY: DATE: REPORT STATUS : Draft TRANSCRIBED BY: MODL DATE: 11/28/16 ADMISSION DATE: 11/15/2016 DISCHARGE DATE: 11/28/2016 DISCHARGE DIAGNOSES: 1. Presumed post obstruction pneumonia/antibiotic therapy complete. 2. Endobronchial tumor, new diagnosis. 3. Acute anasarca. 4. Intractable cough. 5. Port placement. 6. Leukocytosis. CONSULTATIONS: 1. Dr. Angela Appiah, Pulmonology on 11/18/2016. 2. Dr. Yinka Whelan, Surgery on 11/26/2016. 3. Dr. Mir Child, [facility]. PERTINENT TESTS AND PROCEDURES: Please refer to interim discharge summary dated 11/24/2016, provided by Shannon Zhang nurse practitioner, for pertinent test and procedures occurring between the dates of service 11/16/2016 and 11/24/2016. 1. Right internal jugular Port-A-Cath placement under ultrasound and fluoroscopic guidance on 11/26/2016. CHIEF COMPLAINT UPON ADMISSION: Fever and chills. HOSPITAL COURSE: Please refer to history and physical dated 11/16/2016, provided by Dr. Quinones for complete details pertaining to patient's initial presentation upon admission and health history. Also refer to consultation dated 11/18/[address] Appiah, Pulmonology. Please also refer to interim discharge summary dated 11/24/2016, provided by Shannon Zhang, nurse practitioner, for details pertaining to events occurring between 11/16/2016 and 11/24/2016. Briefly, the patient is a 61-year-old female, with a history of metastatic breast cancer to the lung and bone on chemotherapy followed by Dr. Child, [facility]. The patient presented to the emergency department on 11/15/2016, with complaints of fever and chills. Upon initial evaluation, the patient's temperature was reported as 103.2 degrees Fahrenheit, heart rate 125, respirations 20 per minute, and blood pressure 94/57. The patient was admitted to the hospitalist service for further evaluation and treatment, febrile illness/sepsis. It is noteworthy to mention that the patient was also hospitalized to [facility] between the dates of 11/06/2016 and 11/08/2016. Chief complaint upon admission with increasing Discharge Summary [address] [place] [address] NAME: JOSE JACOBSON : 55 STATUS : DIS IN PAT#: [id number] AGE: 61 ADM/REG DATE : 11/15/16 MR#: [id number] REPORT SERV DATE: 11/29/16 DICTATED BY: DATE: REPORT STATUS : Draft TRANSCRIBED BY: MODL DATE: 11/28/16 shortness of breath with fevers. DISCHARGE DIAGNOSES: Metastatic triple-negative breast cancer with metastatic disease to lung and bones, post obstructive pneumonia with sepsis, and reactive airway disease. During this admission, Pulmonology was consulted for evaluation and recommendations regarding post obstructive pneumonia in the setting of metastatic breast cancer with metastases to bone and lung. The patient underwent bronchoscopy with bronchoalveolar lavage, airway inspection, and endobronchial ultrasound, and transbronchial needle aspiration on 11/19/2016. FINAL PATHOLOGIC DIAGNOSIS: Reported non-small cell carcinoma not otherwise specified. Pathology addendum dated 11/26/2016, reported given this patient's clinical history additional stains were performed. Those results support interpretation of metastatic mammary carcinoma. Breast prognostic factors have been ordered and results will follow on the second addendum. The patient also started radiation therapy and completed 8 of 10 treatments during this admission. Therapy will be complete on 12/02/2016. 1. Presumed post operative post obstruction pneumonia/sepsis. Sepsis has resolved. The patient underwent extensive course of antibiotics to include vancomycin between the dates of 11/16/2016 and 11/22/2016, Maxipime between the dates of 11/15/2016 and 11/17/2016. The patient also received meropenem between 11/17/2016 and 11/26/2016. The patient's white blood count normalized after initiation of meropenem and fever has been resolved for several days now. White blood count is mildly elevated today at 12.4, however, has trended down daily from 15.8, to 13.7, to 12.4. The patient did receive steroids between the dates of 11/22/2016 and 11/27/2016. Source of infection is difficult to control, secondary to endobronchial tumor requiring airway stenting on 11/24/2016. Fungus culture obtained during bronchoscopy is pending. Procalcitonin has slowly trended downward and is 0.52 at the time of discharge. New extended outpatient antibiotic therapy is indicated at this time. Final pathology results indicated possible primary lung cancer, however, further staining has indicated likely mammary source. Second addendum is pending. 2. Anasarca, this is secondary to third-spacing in the setting of low albumin. The patient has responded well to albumin and Bumex therapy. She will be provided prescription for Lasix 20 mg x3 days at home and then as needed. 3. Intractable cough, this is secondary to endobronchial tumor. The patient will go home with a nebulizer machine and a prescription for albuterol inhalation treatment every eight hours scheduled and every two hours as needed. Hycodan syrup will also be provided. 4. Port placement. The patient is postoperative day #2, right sided Port-A-Cath is intact with no clinical signs or symptoms of infection. 5. Leukocytosis, this is most likely related to recent steroid use between the dates of 11/22/2016 and 11/27/2016. The patient has been afebrile for several days and white blood count is slowly trending down. Labs will be monitored on an outpatient basis. Discharge Summary [address] [address] NAME: JOSE JACOBSON : 55 STATUS : DIS IN PAT#: [id number] AGE: 61 ADM/REG DATE : 11/15/16 MR#: [id number] REPORT SERV DATE: 11/29/16 DICTATED BY: DATE: REPORT STATUS : Draft TRANSCRIBED BY: MODL DATE: 11/28/16 DISCHARGE CONDITION: At the time of discharge, the patient is hemodynamically stable. Physical Therapy was consulted and evaluation recommended use of a walker. The patient has needed DME equipment at home. DISCHARGE DIET: Regular diet as tolerated. Supplement with nutritional shakes three times daily. DISCHARGE MEDICATIONS: 1. Caltrate 600 mg p.o. daily. 2. Vitamin D 1000 units p.o. daily. 3. Prozac 20 mg tablet p.o. daily at bedtime. 4. Synthroid 100 mcg p.o. daily. 5. Prilosec 20 mg tablet p.o. daily at bedtime. 6. MiraLAX 17 g p.o. daily, hold for diarrhea. 7. Albuterol 2.5 mg per 3 mL vial dose 2.5 mL inhaled every eight hours scheduled and every two hours as needed, not to exceed six totaled doses daily. 8. Mucinex 600 mg ER p.o. every 12 hours as needed. 9. Lasix 20 mg p.o. daily x3 days, then as needed. 10.Hycodan 5 mg/5 mL syrup take 5 mL every six hours as needed. 11.Percocet 5/325 mg tablet p.o. every 4 to 6 hours as needed. DISCHARGE INSTRUCTIONS: 1. Follow up with Dr. Child, [facility] next week. 2. Follow up with Radiation Oncology next week as scheduled. The patient and her spouse were instructed to return to the emergency department for any acute onset of fever 100.4 degrees Fahrenheit or higher lasting more than one hour, intractable chills, sweats, increased shortness of breath requiring higher supplemental O2, increased dyspnea on exertion, or any other health concerns that are deviations from her baseline status at the time of this discharge. KYLE/EZEQUIEL DUKE Connors / [id number] CC: MD Claudia Junior II, M.D.
[2016-11-15 18:23] LABS: BASOPHILS 0.6 %; BASOPHILS ABSOLUTE 0.02 10/3/uL (0.0-0.16); EOSINOPHILS 0 %; HEMATOCRIT 28.5 % (36.0-48.0); HEMOGLOBIN 8.8 g/dL (12.0-16.0); IMMATURE GRANULOCYTES 0.3 %; MEAN CORPUS HGB CONC 30.9 g/dL (32.0-36.0); MEAN CORPUSCULAR HEMOGLOB 24.9 pg (26.0-34.0); MEAN CORPUSCULAR VOLUME 80.7 fL (80-100); MEAN PLATELET VOLUME 8.9 fL (9.2-13.0); NEUTROPHILS 45.1 %; RBC DISTRIBUTION WIDTH 21.4 % (12.0-16.0); RED CELL COUNT 3.53 10/6/uL (4.0-5.6)
[2016-11-15 18:24] LABS: ER CBC TAT 0 Hrs 05 Mins; IMMATURE GRANULOCYTES ABSOLUTE 0.01 10/3/uL (0.0-0.11); MANUAL DIFF NO %; PLATELET COUNT 565 10/3/uL (150-400); WHITE BLOOD CELLS 3.3 10/3/uL (4.5-10.5)
[2016-11-15 18:32] LABS: INTERNATIONAL NORMAL RATI 1.2 UNITS (-); PARTIAL THROMBO TIME 38.9 SEC (22.5-37.2); PROTIME (NOT ORD) 15.1 SEC (12.0-14.5)
[2016-11-15 18:43] LABS: A/G RATIO 0.7 (0.7-1.9); ALBUMIN 2.6 G/DL (3.5-5.0); BUN (BLOOD UREA NITROGEN) 12 MG/DL (6-23); CALCIUM, SERUM 7.8 MG/DL (8.5-10.4); CHLORIDE, SERUM 108 MMOL/L (96-112); CO2 (CARBON DIOXIDE) 24 MMOL/L (24-34); CREATININE 1.06 MG/DL (0.55-1.02); GFR AFRICAN AMERICAN 66 ML/MIN (>=60); GFR NON AFRICAN AMERICAN 57 ML/MIN (>=60); GLOBULIN 3.9 G/DL (2.5-4.1); POTASSIUM, SERUM 4.5 MMOL/L (3.5-5.3); SGOT(AST) 46 U/L (5-40); SGPT(ALT) 31 U/L (5-65); SODIUM, SERUM 140 MMOL/L (135-148); TOTAL BILIRUBIN 0.4 MG/DL (0-1.2); TOTAL PROTEIN 6.5 G/DL (6.0-8.5)
[2016-11-15 18:44] LABS: ALKALINE PHOSPHATASE 99 U/L (45-117); GLUCOSE, SERUM 111 MG/DL (60-99)
[2016-11-15 18:48] LABS: LACTATE 1.4 MMOL/L (0.3-2.4)
[2016-11-15 18:51] LABS: ER DIFF TAT 0 Hrs 32 Mins; SEGMENTED NEUTROPHIL (0) 52 %; TOTAL NUCLEATED CELLS 50
[2016-11-15 18:52] LABS: BAND NEUTROPHILS 6 %; LYMPHOCYTES 28 %; LYMPHOCYTES ABSOLUTE (CALC) 0.92 10/3/uL (0.67-4.30); MONOCYTES 14 %; MONOCYTES ABSOLUTE (CALC) 0.46 10/3/uL (0.21-1.20); NEUTROPHILS ABSOLUTE (CALC) 1.91 10/3/uL (2.02-8.40)
[2016-11-15 18:53] LABS: POIKILOCYTOSIS 1+ (5-10/OIF) (0-5/OIF)
[2016-11-15 18:54] LABS: PLATELET ESTIMATE SLT INC (ADEQUATE)
[2016-11-15 18:55] LABS: HYPOCHROMIA 1+ (3-10/OIF) (0-2/OIF); MICROCYTES 1+ (5-10/OIF) (0-5/OIF)
[~2016-11-15 19:22] MED LIST changes: +CALCIUM IV; +CALTRA600D PO; +CHEMOTHERAPY; +MEDROLPAK4 PO; +MONODOX100 MG PO; +PRILOSEC OTC20 MG PO; +SYN1 PO; +TESS PO; +Z-PAK PO; +ZOFRANODT8 PO
[2016-11-15] MEDS ORDERED: CALTRA600D PO (19:24)
[2016-11-15] MEDS ORDERED: SYN1 PO (19:24)
[2016-11-15] MEDS ORDERED: PRILO PO (19:25)
[2016-11-15] MEDS ORDERED: VITAMIN D1000 UNI1 PO (19:25)
[2016-11-15] MEDS ORDERED: PROZAC PO (19:25)
[2016-11-15 19:26] LABS: TROPONIN I <0.02 NG/ML (<0.05)
[2016-11-15 22:27] LABS: PROCALCITONIN 0.17 ng/mL (<0.5)
[2016-11-15 23:26] LABS: ASCORBIC ACID (UR NOT ORDER) NEG (NEG); BILIRUBIN, URINE NEGATIVE (NEG); ER URINALYSIS TAT 0 Hrs 00 Mins; KETONE, URINE NEGATIVE (NEG); LEUKOCYTE ESTERASE(NOT OR NEG (NEG); NITRITE (URINE) NEG (NEG); WBC (NOT ORDERED) (RFLEX) 1 (0-5)
[2016-11-16 07:09] LABS: MEAN CORPUS HGB CONC 31.4 g/dL (32.0-36.0); MEAN CORPUSCULAR VOLUME 79.7 fL (80-100); MEAN PLATELET VOLUME 8.7 fL (9.2-13.0); PLATELET COUNT 431 10/3/uL (150-400); RBC DISTRIBUTION WIDTH 21.4 % (12.0-16.0); WHITE BLOOD CELLS 2.8 10/3/uL (4.5-10.5)
[2016-11-16 07:11] LABS: HEMATOCRIT 25.5 % (36.0-48.0); MANUAL DIFF YES %
[2016-11-16 07:26] LABS: LACTATE 0.9 MMOL/L (0.3-2.4)
[2016-11-16 07:29] LABS: BUN (BLOOD UREA NITROGEN) 11 MG/DL (6-23); CALCIUM, SERUM 7.9 MG/DL (8.5-10.4); CHLORIDE, SERUM 109 MMOL/L (96-112); CO2 (CARBON DIOXIDE) 25 MMOL/L (24-34); CREATININE 0.85 MG/DL (0.55-1.02); GFR AFRICAN AMERICAN 86 ML/MIN (>=60); GFR NON AFRICAN AMERICAN 74 ML/MIN (>=60); GLUCOSE, SERUM 96 MG/DL (60-99); PHOSPHORUS, SERUM 2.5 MG/DL (2.5-4.5); POTASSIUM, SERUM 4.3 MMOL/L (3.5-5.3); SODIUM, SERUM 141 MMOL/L (135-148)
[2016-11-16 08:25] LABS: BAND NEUTROPHILS 2 %; HYPOCHROMIA 1+ (3-10/OIF) (0-2/OIF); LYMPHOCYTES 28 %; LYMPHOCYTES ABSOLUTE (CALC) 0.78 10/3/uL (0.67-4.30); MONOCYTES 21 %; MONOCYTES ABSOLUTE (CALC) 0.59 10/3/uL (0.21-1.20); NEUTROPHILS ABSOLUTE (CALC) 1.43 10/3/uL (2.02-8.40); PLATELET ESTIMATE SLT INC (ADEQUATE); SEGMENTED NEUTROPHIL (0) 49 %; TOTAL NUCLEATED CELLS 100
[2016-11-16 08:26] LABS: ANISOCYTOSIS 1+ (5-10/OIF) (0-5/OIF); MICROCYTES 1+ (5-10/OIF) (0-5/OIF)
[2016-11-17 06:18] LABS: HEMATOCRIT 24.3 % (36.0-48.0); HEMOGLOBIN 7.5 g/dL (12.0-16.0); MEAN CORPUS HGB CONC 30.9 g/dL (32.0-36.0); MEAN CORPUSCULAR HEMOGLOB 24.6 pg (26.0-34.0); MEAN CORPUSCULAR VOLUME 79.7 fL (80-100); MEAN PLATELET VOLUME 8.8 fL (9.2-13.0); PLATELET COUNT 419 10/3/uL (150-400); RBC DISTRIBUTION WIDTH 21.1 % (12.0-16.0); RED CELL COUNT 3.05 10/6/uL (4.0-5.6)
[2016-11-17 06:22] LABS: MANUAL DIFF YES %
[2016-11-17 06:29] LABS: CALCIUM, SERUM 7.9 MG/DL (8.5-10.4); CHLORIDE, SERUM 110 MMOL/L (96-112); CO2 (CARBON DIOXIDE) 21 MMOL/L (24-34); CREATININE 0.83 MG/DL (0.55-1.02); GFR AFRICAN AMERICAN 88 ML/MIN (>=60); GFR NON AFRICAN AMERICAN 76 ML/MIN (>=60); GLUCOSE, SERUM 107 MG/DL (60-99); POTASSIUM, SERUM 4.3 MMOL/L (3.5-5.3); SODIUM, SERUM 140 MMOL/L (135-148)
[2016-11-17 06:33] LABS: BUN (BLOOD UREA NITROGEN) 6 MG/DL (6-23)
[2016-11-17 07:15] LABS: ANISOCYTOSIS 1+ (5-10/OIF) (0-5/OIF); BAND NEUTROPHILS 8 %; BASOPHILS 1 %; BASOPHILS ABSOLUTE (CALC) 0.03 10/3/uL (0.0-0.16); HYPOCHROMIA 1+ (3-10/OIF) (0-2/OIF); LYMPHOCYTES 20 %; MICROCYTES 1+ (5-10/OIF) (0-5/OIF); MONOCYTES 24 %; MONOCYTES ABSOLUTE (CALC) 0.72 10/3/uL (0.21-1.20); NEUTROPHILS ABSOLUTE (CALC) 1.65 10/3/uL (2.02-8.40); PLATELET ESTIMATE SLT INC (ADEQUATE); SEGMENTED NEUTROPHIL (0) 47 %; TOTAL NUCLEATED CELLS 100
[2016-11-18 04:00] LABS: HEMATOCRIT 23.5 % (36.0-48.0); HEMOGLOBIN 7.1 g/dL (12.0-16.0); MEAN CORPUS HGB CONC 30.2 g/dL (32.0-36.0); MEAN CORPUSCULAR HEMOGLOB 24.3 pg (26.0-34.0); MEAN CORPUSCULAR VOLUME 80.5 fL (80-100); MEAN PLATELET VOLUME 8.4 fL (9.2-13.0); PLATELET COUNT 399 10/3/uL (150-400); RED CELL COUNT 2.92 10/6/uL (4.0-5.6); WHITE BLOOD CELLS 3.5 10/3/uL (4.5-10.5)
[2016-11-18 04:01] LABS: MANUAL DIFF YES %
[2016-11-18 04:07] LABS: INTERNATIONAL NORMAL RATI 1.3 UNITS (-); PROTIME (NOT ORD) 15.6 SEC (12.0-14.5)
[2016-11-18 04:12] LABS: BUN (BLOOD UREA NITROGEN) 6 MG/DL (6-23); CALCIUM, SERUM 7.5 MG/DL (8.5-10.4); CHLORIDE, SERUM 109 MMOL/L (96-112); CO2 (CARBON DIOXIDE) 24 MMOL/L (24-34); GFR AFRICAN AMERICAN 92 ML/MIN (>=60); GFR NON AFRICAN AMERICAN 80 ML/MIN (>=60); GLUCOSE, SERUM 94 MG/DL (60-99); POTASSIUM, SERUM 4.3 MMOL/L (3.5-5.3); SODIUM, SERUM 142 MMOL/L (135-148)
[2016-11-18 04:26] LABS: ANISOCYTOSIS 1+ (5-10/OIF) (0-5/OIF); BAND NEUTROPHILS 8 %; BASOPHILS 2 %; BASOPHILS ABSOLUTE (CALC) 0.07 10/3/uL (0.0-0.16); ELLIPTOCYTES 1+ (3-10/OIF) (0-2/OIF); HYPOCHROMIA 1+ (3-10/OIF) (0-2/OIF); LYMPHOCYTES 8 %; LYMPHOCYTES ABSOLUTE (CALC) 0.28 10/3/uL (0.67-4.30); MONOCYTES 24 %; MONOCYTES ABSOLUTE (CALC) 0.84 10/3/uL (0.21-1.20); NEUTROPHILS ABSOLUTE (CALC) 2.31 10/3/uL (2.02-8.40); PLATELET ESTIMATE ADQ (ADEQUATE); POLYCHROMASIA 1+ (2-5/OIF) (0-1/OIF); SEGMENTED NEUTROPHIL (0) 58 %; TEARDROP SHAPED RBCS FEW (3-10/OIF); TOTAL NUCLEATED CELLS 100
[2016-11-19 05:04] LABS: HEMATOCRIT 23.2 % (36.0-48.0); MEAN CORPUS HGB CONC 29.7 g/dL (32.0-36.0); MEAN CORPUSCULAR VOLUME 80.6 fL (80-100); MEAN PLATELET VOLUME 8.6 fL (9.2-13.0); PLATELET COUNT 383 10/3/uL (150-400); RED CELL COUNT 2.88 10/6/uL (4.0-5.6); WHITE BLOOD CELLS 4.4 10/3/uL (4.5-10.5)
[2016-11-19 05:13] LABS: HEMOGLOBIN 6.9 g/dL (12.0-16.0)
[2016-11-19 05:15] LABS: MANUAL DIFF YES %
[2016-11-19 05:51] LABS: BAND NEUTROPHILS 3 %; EOSINOPHILS 2 %; EOSINOPHILS ABSOLUTE (CALC) 0.09 10/3/uL (0.0-0.53); LYMPHOCYTES 26 %; LYMPHOCYTES ABSOLUTE (CALC) 1.14 10/3/uL (0.67-4.30); MONOCYTES 15 %; MONOCYTES ABSOLUTE (CALC) 0.66 10/3/uL (0.21-1.20); NEUTROPHILS ABSOLUTE (CALC) 2.51 10/3/uL (2.02-8.40); PLATELET ESTIMATE ADQ (ADEQUATE); SEGMENTED NEUTROPHIL (0) 54 %; TOTAL NUCLEATED CELLS 100
[2016-11-19 05:52] LABS: ANISOCYTOSIS 1+ (5-10/OIF) (0-5/OIF)
[2016-11-19 17:03] LABS: BD FL LYMPH (NOT ORD) 4 %; BF BASO (NOT OF) 0 %; BF LARGE MONONUCLEAR 81 %; BODY FLUID EOS (NOT ORD) 0 %; BODY FLUID SEG (NOT ORD) 15 %
[2016-11-19 17:07] LABS: BD FL SOURCE (NOT ORD) BAL RML; BF TOTAL CELL CT (NOT ORD 123 /MM3
[2016-11-19 17:08] LABS: BODY FLUID RBC (NOT ORD) 8000 /MM3
[2016-11-20 09:40] LABS: HEMATOCRIT 29.9 % (36.0-48.0); HEMOGLOBIN 9.3 g/dL (12.0-16.0); MANUAL DIFF YES %; MEAN CORPUS HGB CONC 31.1 g/dL (32.0-36.0); MEAN CORPUSCULAR HEMOGLOB 25.5 pg (26.0-34.0); MEAN CORPUSCULAR VOLUME 81.9 fL (80-100); MEAN PLATELET VOLUME 8.5 fL (9.2-13.0); PLATELET COUNT 355 10/3/uL (150-400); RBC DISTRIBUTION WIDTH 19.5 % (12.0-16.0); RED CELL COUNT 3.65 10/6/uL (4.0-5.6); WHITE BLOOD CELLS 7.3 10/3/uL (4.5-10.5)
[2016-11-20 09:55] LABS: BUN (BLOOD UREA NITROGEN) 5 MG/DL (6-23); CHLORIDE, SERUM 109 MMOL/L (96-112); CO2 (CARBON DIOXIDE) 22 MMOL/L (24-34); CREATININE 0.67 MG/DL (0.55-1.02); GFR AFRICAN AMERICAN 110 ML/MIN (>=60); GFR NON AFRICAN AMERICAN 95 ML/MIN (>=60); GLUCOSE, SERUM 105 MG/DL (60-99); POTASSIUM, SERUM 4.2 MMOL/L (3.5-5.3); SODIUM, SERUM 141 MMOL/L (135-148); VANCOMYCIN TROUGH 15.4 MCG/ML (10.0-20.0)
[2016-11-20 10:20] LABS: BAND NEUTROPHILS 13 %; BASOPHILS 1 %; BASOPHILS ABSOLUTE (CALC) 0.07 10/3/uL (0.0-0.16); IMMATURE GRANS ABSOLUTE (CALC) 0.15 10/3/uL (0.0-0.11); LYMPHOCYTES 5 %; LYMPHOCYTES ABSOLUTE (CALC) 0.37 10/3/uL (0.67-4.30); METAMYELOCYTES 1 %; MONOCYTES 7 %; MONOCYTES ABSOLUTE (CALC) 0.51 10/3/uL (0.21-1.20); MYELOCYTES 1 %; NEUTROPHILS ABSOLUTE (CALC) 6.21 10/3/uL (2.02-8.40); SEGMENTED NEUTROPHIL (0) 72 %; TOTAL NUCLEATED CELLS 100
[2016-11-20 10:21] LABS: PLATELET ESTIMATE ADQ (ADEQUATE)
[2016-11-20 10:32] LABS: ANISOCYTOSIS 1+ (5-10/OIF) (0-5/OIF); HYPOCHROMIA 1+ (3-10/OIF) (0-2/OIF); MICROCYTES 1+ (5-10/OIF) (0-5/OIF)
[2016-11-21 06:53] LABS: BASOPHILS 0.1 %; BASOPHILS ABSOLUTE 0.01 10/3/uL (0.0-0.16); EOSINOPHILS 0 %; HEMATOCRIT 29.5 % (36.0-48.0); HEMOGLOBIN 9.2 g/dL (12.0-16.0); IMMATURE GRANULOCYTES 0.3 %; IMMATURE GRANULOCYTES ABSOLUTE 0.03 10/3/uL (0.0-0.11); LYMPHOCYTES 4.3 %; LYMPHOCYTES ABSOLUTE 0.44 10/3/uL (0.67-4.30); MEAN CORPUS HGB CONC 31.2 g/dL (32.0-36.0); MEAN CORPUSCULAR HEMOGLOB 25.6 pg (26.0-34.0); MEAN CORPUSCULAR VOLUME 81.9 fL (80-100); MEAN PLATELET VOLUME 8.8 fL (9.2-13.0); MONOCYTES 12.5 %; MONOCYTES ABSOLUTE 1.27 10/3/uL (0.21-1.20); NEUTROPHILS 82.8 %; NEUTROPHILS ABSOLUTE 8.38 10/3/uL (2.02-8.40); PLATELET COUNT 358 10/3/uL (150-400); RBC DISTRIBUTION WIDTH 19.8 % (12.0-16.0); WHITE BLOOD CELLS 10.1 10/3/uL (4.5-10.5)
[2016-11-21 06:54] LABS: MANUAL DIFF NO %
[2016-11-21 17:58] LABS: WBC (NOT ORDERED) (RFLEX) 0 (0-5)
[2016-11-21 18:43] LABS: ASCORBIC ACID (UR NOT ORDER) NEG (NEG); BILIRUBIN, URINE NEGATIVE (NEG); KETONE, URINE NEGATIVE (NEG); LEUKOCYTE ESTERASE(NOT OR NEG (NEG)
[2016-11-22 07:25] LABS: BASOPHILS 0.2 %; BASOPHILS ABSOLUTE 0.02 10/3/uL (0.0-0.16); EOSINOPHILS 0 %; HEMATOCRIT 30.2 % (36.0-48.0); HEMOGLOBIN 9.2 g/dL (12.0-16.0); IMMATURE GRANULOCYTES 0.3 %; IMMATURE GRANULOCYTES ABSOLUTE 0.03 10/3/uL (0.0-0.11); LYMPHOCYTES 5.7 %; LYMPHOCYTES ABSOLUTE 0.56 10/3/uL (0.67-4.30); MANUAL DIFF NO %; MEAN CORPUS HGB CONC 30.5 g/dL (32.0-36.0); MEAN CORPUSCULAR HEMOGLOB 25.1 pg (26.0-34.0); MEAN CORPUSCULAR VOLUME 82.3 fL (80-100); MEAN PLATELET VOLUME 8.7 fL (9.2-13.0); MONOCYTES 11.1 %; MONOCYTES ABSOLUTE 1.08 10/3/uL (0.21-1.20); NEUTROPHILS 82.7 %; NEUTROPHILS ABSOLUTE 8.05 10/3/uL (2.02-8.40); PLATELET COUNT 331 10/3/uL (150-400); RED CELL COUNT 3.67 10/6/uL (4.0-5.6); WHITE BLOOD CELLS 9.7 10/3/uL (4.5-10.5)
[2016-11-22 07:35] LABS: BUN (BLOOD UREA NITROGEN) 6 MG/DL (6-23); CALCIUM, SERUM 7.1 MG/DL (8.5-10.4); CHLORIDE, SERUM 108 MMOL/L (96-112); CO2 (CARBON DIOXIDE) 26 MMOL/L (24-34); CREATININE 0.68 MG/DL (0.55-1.02); GFR AFRICAN AMERICAN 109 ML/MIN (>=60); GFR NON AFRICAN AMERICAN 94 ML/MIN (>=60); GLUCOSE, SERUM 105 MG/DL (60-99); SODIUM, SERUM 140 MMOL/L (135-148)
[2016-11-23 04:27] LABS: BASOPHILS 0 %; EOSINOPHILS 0 %; HEMATOCRIT 28.9 % (36.0-48.0); IMMATURE GRANULOCYTES 0.3 %; IMMATURE GRANULOCYTES ABSOLUTE 0.03 10/3/uL (0.0-0.11); LYMPHOCYTES 3.2 %; MANUAL DIFF NO %; MEAN CORPUS HGB CONC 31.1 g/dL (32.0-36.0); MEAN CORPUSCULAR HEMOGLOB 25.4 pg (26.0-34.0); MEAN CORPUSCULAR VOLUME 81.6 fL (80-100); MEAN PLATELET VOLUME 8.8 fL (9.2-13.0); MONOCYTES 3.9 %; MONOCYTES ABSOLUTE 0.37 10/3/uL (0.21-1.20); NEUTROPHILS 92.6 %; NEUTROPHILS ABSOLUTE 8.68 10/3/uL (2.02-8.40); PLATELET COUNT 318 10/3/uL (150-400); RBC DISTRIBUTION WIDTH 20.1 % (12.0-16.0); RED CELL COUNT 3.54 10/6/uL (4.0-5.6); WHITE BLOOD CELLS 9.4 10/3/uL (4.5-10.5)
[2016-11-23 04:40] LABS: BUN (BLOOD UREA NITROGEN) 9 MG/DL (6-23); CALCIUM, SERUM 7.7 MG/DL (8.5-10.4); CHLORIDE, SERUM 109 MMOL/L (96-112); CO2 (CARBON DIOXIDE) 29 MMOL/L (24-34); CREATININE 0.73 MG/DL (0.55-1.02); GFR AFRICAN AMERICAN 103 ML/MIN (>=60); GFR NON AFRICAN AMERICAN 89 ML/MIN (>=60); GLUCOSE, SERUM 149 MG/DL (60-99); POTASSIUM, SERUM 4.5 MMOL/L (3.5-5.3); SODIUM, SERUM 142 MMOL/L (135-148)
[2016-11-24 04:00] LABS: BASOPHILS 0 %; EOSINOPHILS 0 %; HEMATOCRIT 30.1 % (36.0-48.0); HEMOGLOBIN 9.5 g/dL (12.0-16.0); IMMATURE GRANULOCYTES 0.6 %; IMMATURE GRANULOCYTES ABSOLUTE 0.09 10/3/uL (0.0-0.11); LYMPHOCYTES 1.9 %; LYMPHOCYTES ABSOLUTE 0.31 10/3/uL (0.67-4.30); MEAN CORPUS HGB CONC 31.6 g/dL (32.0-36.0); MEAN CORPUSCULAR HEMOGLOB 25.7 pg (26.0-34.0); MEAN CORPUSCULAR VOLUME 81.4 fL (80-100); MEAN PLATELET VOLUME 9.1 fL (9.2-13.0); MONOCYTES 3.4 %; MONOCYTES ABSOLUTE 0.55 10/3/uL (0.21-1.20); NEUTROPHILS 94.1 %; NEUTROPHILS ABSOLUTE 15.04 10/3/uL (2.02-8.40); PLATELET COUNT 383 10/3/uL (150-400); RBC DISTRIBUTION WIDTH 20.5 % (12.0-16.0)
[2016-11-24 04:01] LABS: MANUAL DIFF NO %
[2016-11-24 04:12] LABS: INTERNATIONAL NORMAL RATI 1.3 UNITS (-); PARTIAL THROMBO TIME 33.8 SEC (22.5-37.2); PROTIME (NOT ORD) 16.1 SEC (12.0-14.5)
[2016-11-25 03:54] LABS: BASOPHILS 0 %; EOSINOPHILS 0 %; HEMATOCRIT 30.5 % (36.0-48.0); HEMOGLOBIN 9.4 g/dL (12.0-16.0); IMMATURE GRANULOCYTES 0.8 %; LYMPHOCYTES 1.7 %; LYMPHOCYTES ABSOLUTE 0.22 10/3/uL (0.67-4.30); MANUAL DIFF NO %; MEAN CORPUS HGB CONC 30.8 g/dL (32.0-36.0); MEAN CORPUSCULAR HEMOGLOB 25.6 pg (26.0-34.0); MEAN CORPUSCULAR VOLUME 83.1 fL (80-100); MONOCYTES 4.8 %; MONOCYTES ABSOLUTE 0.62 10/3/uL (0.21-1.20); NEUTROPHILS 92.7 %; NEUTROPHILS ABSOLUTE 11.92 10/3/uL (2.02-8.40); PLATELET COUNT 385 10/3/uL (150-400); RBC DISTRIBUTION WIDTH 20.7 % (12.0-16.0); RED CELL COUNT 3.67 10/6/uL (4.0-5.6); WHITE BLOOD CELLS 12.9 10/3/uL (4.5-10.5)
[2016-11-25 04:11] LABS: CALCIUM, SERUM 8.1 MG/DL (8.5-10.4); CHLORIDE, SERUM 112 MMOL/L (96-112); CO2 (CARBON DIOXIDE) 26 MMOL/L (24-34); CREATININE 0.84 MG/DL (0.55-1.02); GFR AFRICAN AMERICAN 87 ML/MIN (>=60); GFR NON AFRICAN AMERICAN 75 ML/MIN (>=60); GLUCOSE, SERUM 140 MG/DL (60-99); POTASSIUM, SERUM 4.9 MMOL/L (3.5-5.3); SODIUM, SERUM 146 MMOL/L (135-148)
[2016-11-25 04:18] LABS: BUN (BLOOD UREA NITROGEN) 22 MG/DL (6-23)
[2016-11-25 04:39] LABS: PROCALCITONIN 0.58 ng/mL (<0.5)
[2016-11-26 06:37] LABS: HEMOGLOBIN 10.2 g/dL (12.0-16.0); MEAN CORPUS HGB CONC 30.4 g/dL (32.0-36.0); MEAN CORPUSCULAR HEMOGLOB 25.2 pg (26.0-34.0); MEAN CORPUSCULAR VOLUME 83.2 fL (80-100); MEAN PLATELET VOLUME 9.2 fL (9.2-13.0); PLATELET COUNT 381 10/3/uL (150-400); RBC DISTRIBUTION WIDTH 20.8 % (12.0-16.0); RED CELL COUNT 4.04 10/6/uL (4.0-5.6); WHITE BLOOD CELLS 15.8 10/3/uL (4.5-10.5)
[2016-11-26 06:39] LABS: HEMATOCRIT 33.6 % (36.0-48.0); MANUAL DIFF YES %
[2016-11-26 06:48] LABS: BUN (BLOOD UREA NITROGEN) 24 MG/DL (6-23); CALCIUM, SERUM 8.6 MG/DL (8.5-10.4); CHLORIDE, SERUM 110 MMOL/L (96-112); CO2 (CARBON DIOXIDE) 29 MMOL/L (24-34); CREATININE 0.79 MG/DL (0.55-1.02); GFR AFRICAN AMERICAN 94 ML/MIN (>=60); GFR NON AFRICAN AMERICAN 81 ML/MIN (>=60); GLUCOSE, SERUM 113 MG/DL (60-99); SODIUM, SERUM 144 MMOL/L (135-148)
[2016-11-26 06:49] LABS: ALBUMIN 1.9 G/DL (3.5-5.0)
[2016-11-26 07:03] LABS: ANISOCYTOSIS 1+ (5-10/OIF) (0-5/OIF); BAND NEUTROPHILS 2 %; IMMATURE GRANS ABSOLUTE (CALC) 0.16 10/3/uL (0.0-0.11); LYMPHOCYTES 4 %; LYMPHOCYTES ABSOLUTE (CALC) 0.63 10/3/uL (0.67-4.30); METAMYELOCYTES 1 %; MONOCYTES 1 %; MONOCYTES ABSOLUTE (CALC) 0.16 10/3/uL (0.21-1.20); NEUTROPHILS ABSOLUTE (CALC) 14.85 10/3/uL (2.02-8.40); OVALOCYTES 1+ (3-10/OIF) (0-2/OIF); PLATELET ESTIMATE ADQ (ADEQUATE); POIKILOCYTOSIS 1+ (5-10/OIF) (0-5/OIF); SEGMENTED NEUTROPHIL (0) 92 %; TOTAL NUCLEATED CELLS 100
[2016-11-26 07:04] LABS: POLYCHROMASIA 1+ (2-5/OIF) (0-1/OIF)
[2016-11-27 05:16] LABS: BASOPHILS 0.1 %; BASOPHILS ABSOLUTE 0.01 10/3/uL (0.0-0.16); EOSINOPHILS 0 %; HEMATOCRIT 34.1 % (36.0-48.0); HEMOGLOBIN 10.5 g/dL (12.0-16.0); IMMATURE GRANULOCYTES 0.7 %; IMMATURE GRANULOCYTES ABSOLUTE 0.09 10/3/uL (0.0-0.11); LYMPHOCYTES 6.2 %; LYMPHOCYTES ABSOLUTE 0.85 10/3/uL (0.67-4.30); MANUAL DIFF NO %; MEAN CORPUS HGB CONC 30.8 g/dL (32.0-36.0); MEAN CORPUSCULAR HEMOGLOB 25.2 pg (26.0-34.0); MEAN PLATELET VOLUME 9.5 fL (9.2-13.0); MONOCYTES 5.4 %; MONOCYTES ABSOLUTE 0.74 10/3/uL (0.21-1.20); NEUTROPHILS 87.6 %; NEUTROPHILS ABSOLUTE 12.01 10/3/uL (2.02-8.40); PLATELET COUNT 288 10/3/uL (150-400); RED CELL COUNT 4.16 10/6/uL (4.0-5.6); WHITE BLOOD CELLS 13.7 10/3/uL (4.5-10.5)
[2016-11-27 05:28] LABS: BUN (BLOOD UREA NITROGEN) 21 MG/DL (6-23); CALCIUM, SERUM 8.5 MG/DL (8.5-10.4); CHLORIDE, SERUM 105 MMOL/L (96-112); CO2 (CARBON DIOXIDE) 32 MMOL/L (24-34); CREATININE 0.83 MG/DL (0.55-1.02); GFR AFRICAN AMERICAN 88 ML/MIN (>=60); GFR NON AFRICAN AMERICAN 76 ML/MIN (>=60); GLUCOSE, SERUM 95 MG/DL (60-99); POTASSIUM, SERUM 4.7 MMOL/L (3.5-5.3); SODIUM, SERUM 143 MMOL/L (135-148)
[2016-11-27 06:56] LABS: PROCALCITONIN 0.52 ng/mL (<0.5)
[2016-11-28 03:36] LABS: BASOPHILS 0 %; EOSINOPHILS 0.2 %; EOSINOPHILS ABSOLUTE 0.02 10/3/uL (0.0-0.53); HEMATOCRIT 31.6 % (36.0-48.0); HEMOGLOBIN 9.8 g/dL (12.0-16.0); IMMATURE GRANULOCYTES 0.5 %; IMMATURE GRANULOCYTES ABSOLUTE 0.06 10/3/uL (0.0-0.11); LYMPHOCYTES 4.4 %; LYMPHOCYTES ABSOLUTE 0.55 10/3/uL (0.67-4.30); MEAN CORPUSCULAR HEMOGLOB 25.3 pg (26.0-34.0); MEAN CORPUSCULAR VOLUME 81.4 fL (80-100); MEAN PLATELET VOLUME 9.3 fL (9.2-13.0); MONOCYTES 4.5 %; MONOCYTES ABSOLUTE 0.56 10/3/uL (0.21-1.20); NEUTROPHILS 90.4 %; NEUTROPHILS ABSOLUTE 11.22 10/3/uL (2.02-8.40); PLATELET COUNT 246 10/3/uL (150-400); RBC DISTRIBUTION WIDTH 21.2 % (12.0-16.0); RED CELL COUNT 3.88 10/6/uL (4.0-5.6); WHITE BLOOD CELLS 12.4 10/3/uL (4.5-10.5)
[2016-11-28 03:37] LABS: MANUAL DIFF NO %
[2016-11-28 03:38] LABS: CALCIUM, SERUM 7.9 MG/DL (8.5-10.4); CHLORIDE, SERUM 100 MMOL/L (96-112); CO2 (CARBON DIOXIDE) 36 MMOL/L (24-34); CREATININE 0.87 MG/DL (0.55-1.02); GFR AFRICAN AMERICAN 83 ML/MIN (>=60); GFR NON AFRICAN AMERICAN 72 ML/MIN (>=60); POTASSIUM, SERUM 4.1 MMOL/L (3.5-5.3); SODIUM, SERUM 142 MMOL/L (135-148)
[2016-11-28 03:39] LABS: BUN (BLOOD UREA NITROGEN) 25 MG/DL (6-23); GLUCOSE, SERUM 117 MG/DL (60-99)
[2016-11-28] MEDS ORDERED: L20 PO (17:24)
[2016-11-28] MEDS ORDERED: HYCODAN PO (17:26)
[2016-11-28] MEDS ORDERED: OXYCOD PO (17:27)
[2016-11-28] MEDS ORDERED: ALBUTEROL5 INH ×2 (17:28)
[2016-11-28] MEDS ORDERED: MUCO10%10 INH ×2 (17:30→17:31)
[2016-11-28] MEDS ORDERED: MIRALAX POWDER1 PKT PO (17:33)
[2016-11-28] MEDS ORDERED: MUCINEX600 MG PO (17:35)
== END 2016-11-28 18:47 | disposition home or self-care (01) | DRG 853 ==
LOC: ER 19:22 → 4EA 23:23
PROVIDERS: Emergency Medicine; Internal Medicine; Internal Medicine Critical Care Medicine; Internal Medicine Pulmonary Disease; Nurse Practitioner Adult Health; Nurse Practitioner Family; Radiology Diagnostic Radiology; Specialist
PROC: 0B958ZX Drainage of Right Middle Lobe Bronchus, Via Natural or Artificial Opening Endoscopic, Diagnostic (ICD-10-PCS; 2016-11-19)
PROC: 07B74ZX Excision of Thorax Lymphatic, Percutaneous Endoscopic Approach, Diagnostic (ICD-10-PCS; 2016-11-19 13:00)
PROC: B5131ZA Fluoroscopy of Right Jugular Veins using Low Osmolar Contrast, Guidance (ICD-10-PCS; 2016-11-26)
PROC: 05HM33Z Insertion of Infusion Device into Right Internal Jugular Vein, Percutaneous Approach (ICD-10-PCS; principal; 2016-11-26 07:45)
DX: A41.9 Sepsis, unspecified organism (principal); J18.9 Pneumonia, unspecified organism; C78.01 Secondary malignant neoplasm of right lung; C79.51 Secondary malignant neoplasm of bone; C50.919 Malignant neoplasm of unspecified site of unspecified female breast; E03.9 Hypothyroidism, unspecified
CPT/HCPCS: 36415; 71010; 71020; 76000; 77280; 77290; 77295; 77300; 77307; 77334; 77336; 77387; 77412; 80048; 80053; 80202; 81001; 82040; 83605; 83690; 83735; 83880; 84100; 84145; 84443; 84484; 85025; 85610; 85730; 86850; 86900; 86901; 86920; 87015; 87040; 87070; 87102; 87116; 87205; 87449; 88112; 88172; 88173; 88305; 88313; 88341; 88342; 88344; 88360; 89051; 93005; 94640; 94660; 96365; 96367; 97162-GP; 99285; A9270-GY; C1725; C1726; C1788; C1876; J0692; J1170; J1940; J2185; J2250; J2370; J2405; J2710; J2930; J3010; J3370; P9016; P9047

== ENCOUNTER 2016-12-20 08:34 | Inpatient (IN) | payer BC ==
--- NOTE | ~2016-12-20 | HP ---
History And Physical [address] [place]. [address] NAME: JOSE JACOBSON : 55 STATUS : ADM IN [facility]#: [id number] AGE: 61 ADM/REG DATE : 12/20/16 MR#: [id number] REPORT SERV DATE: 12/20/16 DICTATED BY: ALEX ZHANG DATE: 12/20/16 REPORT STATUS : Draft TRANSCRIBED BY: MODL DATE: 12/20/16 DATE OF ADMISSION: 12/20/2016 CHIEF COMPLAINT: Fever, dysuria, blisters in perineal area. HISTORY OF PRESENT ILLNESS: This patient is a 61-year-old female, who presented to [facility]'s Emergency Room with complaints of dysuria, fever 99.7 to 100.2, blisters in perineal area. The patient stated this has been ongoing for approximately four days. She does state that she is under the care of Dr. Child [facility] for metastatic breast cancer. Last chemotherapy given on 12/16/2016. The patient does state that she has noted pink-colored urine. Also stated that she had bladder pressure and pain ongoing for approximately four days. She does state that she has had watery stool two to three day since last discharge. She does state that is small amount. Has been using Lomotil and feels that this has helped. The patient does state that she is having ongoing nausea and vomiting following chemotherapy. Is using antiemetics at home to help control. Stating that she has had decreased appetite, but this has been ongoing following chemotherapy. The patient does state that she has had shortness of breath. She is O2 dependent on 2 L at home. Is using the nebulizer as scheduled since discharge. REVIEW OF SYSTEMS: Otherwise, negative review of systems except what is listed above. PAST MEDICAL HISTORY: 1. Metastatic breast cancer diagnosed in 2014, triple negative under the care of Dr. Child and Dr. Leblanc. Does have known bone metastasis. 2. Gastroesophageal reflux disorder. 3. Depression. 4. Hypothyroidism. 5. Atrophic kidney. 6. Pneumonia. 7. Elevated cholesterol. 8. Endobronchial tumor. 9. Acute anasarca. 10.Intractable cough. 11.Leukocytosis. PAST SURGICAL HISTORY: 1. Left mastectomy. 2. Port-A-Cath placement. 3. Right hip surgery. 4. Appendectomy. ALLERGIES: 1. PENICILLIN. 2. CRESTOR. 3. MORPHINE. History And Physical [address] [address] NAME: JOSE JACOBSON : 55 STATUS : ADM IN PAT#: [id number] AGE: 61 ADM/REG DATE : 12/20/16 MR#: [id number] REPORT SERV DATE: 12/20/16 DICTATED BY: ALEX ZHANG DATE: 12/20/16 REPORT STATUS : Draft TRANSCRIBED BY: EZEQUIEL DATE: 12/20/16 4. LEVAQUIN. 5. STATIN. SOCIAL HISTORY: The patient is . Denies smoking. States occasional alcohol use. No children. No longer working. Denies illicit drug use. FAMILY HISTORY: 1. Mother, breast cancer. 2. Father, prostate cancer. CURRENT MEDICATIONS: 1. Albuterol nebulizer. 2. Mucomyst. 3. Calcium plus vitamin D. 4. Vitamin D 1000 units. 5. Prozac 20 mg daily. 6. Lasix 20 mg to 40 mg p.o. daily. 7. Reglan 10 mg one p.o. before meals and at bedtime. 8. Prilosec 20 mg one p.o. at bedtime. 9. Oxycodone 10 mg p.o. every four hours p.r.n. 10.Hycodan cough syrup 5 mg p.o. every 6 hours p.r.n. PHYSICAL EXAMINATION: VITAL SIGNS: Blood pressure 102/60, temperature is 98.4, pulse is 117, respirations are 20, O2 sats 97% on 2 L of nasal cannula. GENERAL: This patient is in no acute distress. HEENT: Pupils are equal, round, and reactive. Mucous membranes are moist. Oropharynx is clear of obstruction. NECK: Trachea is midline. No thyromegaly. LYMPH NODE: No cervical lymphadenopathy. RESPIRATORY: Scant wheezing bilateral. No rales or rhonchi. CARDIOVASCULAR: Tachycardic. Regular rhythm. No murmurs, rubs, or gallops. ABDOMEN: Soft, nondistended. Bowel sounds are active. DERMATOLOGICAL: Perineal erythema. EXTREMITIES: No pallor. No cyanosis. NEUROLOGICAL: The patient is alert and oriented x3. LABORATORY DATA: WBC is 6.4, hemoglobin 7.9, hematocrit 25.9, platelet count is 27. Procalcitonin is 4.02. Sodium is 139, potassium is 3.9, chloride is 103, carbon dioxide is 31, BUN is 17, creatinine 0.76, glucose is 104, calcium is 7.1. Total protein is 4.8, albumin is 1.8, total bilirubin is 2.2, alkaline phos is 383, ALT is 109, AST is 256. Urine appearance is hazy, 30 protein, 2.0 urobilinogen, leukocytes large, nitrite positive, rbc's 15, wbc clumps few, wbc's 182, bacteria many. IMAGING: Chest x-ray, 12/20/2016, impression, abnormal right hilar and mediastinal region consistent with adenopathy, left base atelectatic change is persistent. History And Physical [address] [address] NAME: JOSE JACOBSON : 55 STATUS : ADM IN [facility]#: [id number] AGE: 61 ADM/REG DATE : 12/20/16 MR#: [id number] REPORT SERV DATE: 12/20/16 DICTATED BY: ALEX ZHANG DATE: 12/20/16 REPORT STATUS : Draft TRANSCRIBED BY: EZEQUIEL DATE: 12/20/16 ASSESSMENT AND PLAN: 1. Urinary tract infection. The patient did have complaints of dysuria for approximately four days prior to this admission and urine culture was obtained. The patient will be started on antibiotic and continue to monitor. 2. Perineal cellulitis. Area is erythemic and slight edematous. We will begin the patient on vancomycin. Continue to monitor. Have wound care consult. 3. Fever/sepsis. The patient is tachycardic, noted elevated procalcitonin. Temperature at home 100.2 and tachypneic. We will continue to monitor. The patient blood cultures were obtained. Antibiotics were initiated and continue to monitor. 4. Thrombocytopenia, chemo induced. Continue to monitor patient. At this time, platelet count is 27. We will monitor and transfuse as needed. 5. Anemia, chemo induced. Again, we will continue to monitor, and transfuse if the patient's hemoglobin falls below 7.0. 6. Metastatic breast cancer. We will consult Dr. Child to follow the patient during her hospital stay. This patient will be followed by Dr. Smith during her hospital stay. [facility]/JOHNL Alex Zhang NP / [id number] CC: Rosendo Smith M.D.
--- NOTE | ~2016-12-20 | DS ---
Discharge Summary [facility] [address] [place]. [address] NAME: JOSE JACOBSON : 55 STATUS : DIS IN PAT#: [id number] AGE: 61 ADM/REG DATE : 12/20/16 MR#: [id number] REPORT SERV DATE: 12/25/16 DICTATED BY: MARU CRUZ II DATE: 12/24/16 REPORT STATUS : Draft TRANSCRIBED BY: MODL DATE: 12/24/16 ADMISSION DATE: 12/20/2016 DISCHARGE DATE: 12/24/2016 DISCHARGE DIAGNOSES: 1. Vulvovaginitis. 2. Urinary tract infection. 3. Thrombocytopenia. 4. Anemia. 5. Metastatic breast cancer. 6. Lower extremity edema. 7. Fever and sepsis. CONSULTS: Mir Child M.D. BRIEF HISTORY OF PRESENT ILLNESS: The patient is a 61-year-old female with the above history, who presented to [facility] due to fever, dysuria, and erythema of the perineal area. For detailed history and physical examination, please see Shannon Zhang's note from 12/20/2016. HOSPITAL COURSE: On admission, the patient's urinalysis showed greater than 182 white cells with large leukocyte esterase, positive nitrites. She was started on Rocephin. She also had erythema of the perineal area, perivaginal area consistent with vulvovaginitis. Since admission she seems to be responding well to Rocephin, and Wound Care has been assisting with providing barrier cream to assist with her vulvovaginitis, and she has not had any further fevers and her rash seems to be improving. She was actually switched to Duricef after her urine culture came back with Klebsiella pneumoniae which was franklin sensitive. So far, she has gotten five days of antibiotics which will complete a course of antibiotics for UTI. A renal ultrasound was also done on admission which showed her known left hydronephrosis and renal atrophy. Otherwise right renal parapelvic cysts. Her creatinine is normal at 0.8. At this point, she is clinically improving overall. Her platelets did trend down to 10 and required a transfusion. Currently, her platelets are in the 30s and Dr. Child will see her in clinic early next week for repeat of CBC. Otherwise, she is stable for discharge. DISCHARGE MEDICATIONS: 1. Caltrate 600 mg p.o. daily. 2. Vitamin D 1000 units p.o. daily. 3. Prozac 20 mg p.o. q.h.s. 4. Lasix 40 mg p.o. daily. 5. Synthroid 100 mcg p.o. daily. 6. Reglan 10 mg p.o. a.c. and h.s. 7. Prilosec 20 mg p.o. q.h.s. 8. Mucomyst one dose inhale q.8 hours. 9. Mucomyst one dose inhale q.2 hours p.r.n. shortness of breath. 10.Albuterol neb q.2 hours p.r.n. and q.8 hours schedule. Discharge Summary [address] [address] NAME: JOSE JACOBSON : 55 STATUS : DIS IN PAT#: [id number] AGE: 61 ADM/REG DATE : 12/20/16 MR#: [id number] REPORT SERV DATE: 12/25/16 DICTATED BY: MARU CRUZ II DATE: 12/24/16 REPORT STATUS : Draft TRANSCRIBED BY: EZEQUIEL DATE: 12/24/16 11.Hycodan 5 mg p.o. q.6 hours p.r.n. 12.Oxycodone 10 mg p.o. q.4 hours p.r.n. pain. DISCHARGE INSTRUCTIONS: The patient will follow with Dr. Child next Thursday as scheduled. DICTATED BY: MD PERLA Junior II/EZEQUIEL Maru Cruz II, MD / [id number] CC: Maru Cruz II, MD
[~2016-12-20 08:34] MED LIST changes: +ALBUTEROL5 INH; +HYCODAN PO; +L20 PO; +MIRALAX POWDER1 PKT PO; +MUCO10%10 INH; +OXYCOD PO; +VITAMIN D1000 UNI1 PO
[2016-12-20 09:42] LABS: BASOPHILS 0.2 %; BASOPHILS ABSOLUTE 0.01 10/3/uL (0.0-0.16); EOSINOPHILS 0 %; HEMOGLOBIN 7.9 g/dL (12.0-16.0); IMMATURE GRANULOCYTES 0.3 %; IMMATURE GRANULOCYTES ABSOLUTE 0.02 10/3/uL (0.0-0.11); LYMPHOCYTES 5.5 %; LYMPHOCYTES ABSOLUTE 0.35 10/3/uL (0.67-4.30); MEAN CORPUS HGB CONC 30.5 g/dL (32.0-36.0); MEAN CORPUSCULAR HEMOGLOB 25.8 pg (26.0-34.0); MONOCYTES 0.5 %; MONOCYTES ABSOLUTE 0.03 10/3/uL (0.21-1.20); NEUTROPHILS 93.5 %; NEUTROPHILS ABSOLUTE 5.96 10/3/uL (2.02-8.40); RBC DISTRIBUTION WIDTH 22.1 % (12.0-16.0)
[2016-12-20 09:43] LABS: ER CBC TAT 0 Hrs 13 Mins; HEMATOCRIT 25.9 % (36.0-48.0); MANUAL DIFF NO %; MEAN CORPUSCULAR VOLUME 84.6 fL (80-100); PLATELET COUNT 27 10/3/uL (150-400); RED CELL COUNT 3.06 10/6/uL (4.0-5.6); WHITE BLOOD CELLS 6.4 10/3/uL (4.5-10.5)
[2016-12-20 09:44] LABS: INTERNATIONAL NORMAL RATI 1.3 UNITS (-); PARTIAL THROMBO TIME 35.3 SEC (22.5-37.2); PROTIME (NOT ORD) 15.8 SEC (12.0-14.5)
[2016-12-20 09:52] LABS: A/G RATIO 0.6 (0.7-1.9); ALBUMIN 1.8 G/DL (3.5-5.0); CALCIUM, SERUM 7.1 MG/DL (8.5-10.4); CHLORIDE, SERUM 103 MMOL/L (96-112); CO2 (CARBON DIOXIDE) 31 MMOL/L (24-34); CREATININE 0.76 MG/DL (0.55-1.02); GFR AFRICAN AMERICAN 98 ML/MIN (>=60); GFR NON AFRICAN AMERICAN 85 ML/MIN (>=60); GLUCOSE, SERUM 104 MG/DL (60-99); POTASSIUM, SERUM 3.9 MMOL/L (3.5-5.3); SGOT(AST) 256 U/L (5-40); SGPT(ALT) 109 U/L (5-65); SODIUM, SERUM 139 MMOL/L (135-148); TOTAL PROTEIN 4.8 G/DL (6.0-8.5)
[2016-12-20 09:53] LABS: ALKALINE PHOSPHATASE 383 U/L (45-117); BUN (BLOOD UREA NITROGEN) 17 MG/DL (6-23); LACTATE 1.8 MMOL/L (0.3-2.4); TOTAL BILIRUBIN 2.2 MG/DL (0-1.2)
[2016-12-20 10:06] LABS: HYPOCHROMIA 1+ (3-10/OIF) (0-2/OIF)
[2016-12-20 10:12] LABS: PROCALCITONIN 4.02 ng/mL (<0.5)
[2016-12-20 10:30] LABS: ASCORBIC ACID (UR NOT ORDER) 40 (NEG); BILIRUBIN, URINE NEGATIVE (NEG); ER URINALYSIS TAT 0 Hrs 08 Mins; KETONE, URINE NEGATIVE (NEG); LEUKOCYTE ESTERASE(NOT OR LARGE (NEG)
[2016-12-20 10:31] LABS: NITRITE (URINE) POS (NEG); WBC (NOT ORDERED) (RFLEX) > 182 (0-5)
[2016-12-20] MEDS ORDERED: REG PO (10:51)
[2016-12-21 06:26] LABS: BASOPHILS 0 %; EOSINOPHILS 0 %; HEMATOCRIT 23.7 % (36.0-48.0); HEMOGLOBIN 7.3 g/dL (12.0-16.0); LYMPHOCYTES 13.8 %; LYMPHOCYTES ABSOLUTE 0.35 10/3/uL (0.67-4.30); MEAN CORPUS HGB CONC 30.8 g/dL (32.0-36.0); MEAN CORPUSCULAR HEMOGLOB 26.2 pg (26.0-34.0); MEAN CORPUSCULAR VOLUME 84.9 fL (80-100); MONOCYTES 5.1 %; MONOCYTES ABSOLUTE 0.13 10/3/uL (0.21-1.20); NEUTROPHILS 81.1 %; NEUTROPHILS ABSOLUTE 2.05 10/3/uL (2.02-8.40); RBC DISTRIBUTION WIDTH 22.2 % (12.0-16.0); RED CELL COUNT 2.79 10/6/uL (4.0-5.6)
[2016-12-21 06:37] LABS: PLATELET COUNT 22 10/3/uL (150-400); WHITE BLOOD CELLS 2.5 10/3/uL (4.5-10.5)
[2016-12-21 06:38] LABS: MANUAL DIFF NO %
[2016-12-21 06:39] LABS: A/G RATIO 0.5 (0.7-1.9); ALBUMIN 1.6 G/DL (3.5-5.0); CHLORIDE, SERUM 105 MMOL/L (96-112); CO2 (CARBON DIOXIDE) 27 MMOL/L (24-34); CREATININE 0.63 MG/DL (0.55-1.02); GFR AFRICAN AMERICAN 112 ML/MIN (>=60); GFR NON AFRICAN AMERICAN 97 ML/MIN (>=60); GLOBULIN 3.1 G/DL (2.5-4.1); GLUCOSE, SERUM 88 MG/DL (60-99); POTASSIUM, SERUM 4.1 MMOL/L (3.5-5.3); SGOT(AST) 228 U/L (5-40); SGPT(ALT) 102 U/L (5-65); SODIUM, SERUM 140 MMOL/L (135-148); TOTAL PROTEIN 4.7 G/DL (6.0-8.5)
[2016-12-21 06:40] LABS: ALKALINE PHOSPHATASE 365 U/L (45-117); BUN (BLOOD UREA NITROGEN) 13 MG/DL (6-23); CALCIUM, SERUM 6.9 MG/DL (8.5-10.4); TOTAL BILIRUBIN 1.4 MG/DL (0-1.2)
[2016-12-21 07:07] LABS: HYPOCHROMIA 1+ (3-10/OIF) (0-2/OIF)
[2016-12-22 04:34] LABS: BASOPHILS 0.2 %; EOSINOPHILS 0.2 %; EOSINOPHILS ABSOLUTE 0.01 10/3/uL (0.0-0.53)
[2016-12-22 04:39] LABS: PLATELET COUNT 13 10/3/uL (150-400)
[2016-12-22 04:40] LABS: HEMATOCRIT 27.2 % (36.0-48.0); HEMOGLOBIN 8.7 g/dL (12.0-16.0); MEAN CORPUSCULAR VOLUME 84.5 fL (80-100); NEUTROPHILS 76.5 %; RBC DISTRIBUTION WIDTH 20.5 % (12.0-16.0); RED CELL COUNT 3.22 10/6/uL (4.0-5.6); WHITE BLOOD CELLS 4.4 10/3/uL (4.5-10.5)
[2016-12-22 04:41] LABS: BASOPHILS ABSOLUTE 0.01 10/3/uL (0.0-0.16); IMMATURE GRANULOCYTES 0.5 %; IMMATURE GRANULOCYTES ABSOLUTE 0.02 10/3/uL (0.0-0.11); LYMPHOCYTES 13.7 %; MANUAL DIFF NO %; MONOCYTES 8.9 %; MONOCYTES ABSOLUTE 0.39 10/3/uL (0.21-1.20); NEUTROPHILS ABSOLUTE 3.34 10/3/uL (2.02-8.40)
[2016-12-22 04:55] LABS: ALBUMIN 1.6 G/DL (3.5-5.0); ANISOCYTOSIS 1+ (5-10/OIF) (0-5/OIF); BUN (BLOOD UREA NITROGEN) 11 MG/DL (6-23); CHLORIDE, SERUM 107 MMOL/L (96-112); CO2 (CARBON DIOXIDE) 26 MMOL/L (24-34); DIRECT BILIRUBIN 1.1 MG/DL (0.0-0.4); GFR AFRICAN AMERICAN 92 ML/MIN (>=60); GFR NON AFRICAN AMERICAN 80 ML/MIN (>=60); GLUCOSE, SERUM 92 MG/DL (60-99); INDIRECT BILIRUBIN(NOT ORDER) 0.3 MG/DL (0.1-0.9); POLYCHROMASIA 1+ (2-5/OIF) (0-1/OIF); POTASSIUM, SERUM 3.6 MMOL/L (3.5-5.3); SGOT(AST) 230 U/L (5-40); SGPT(ALT) 100 U/L (5-65); SODIUM, SERUM 143 MMOL/L (135-148); TOTAL BILIRUBIN 1.4 MG/DL (0-1.2); TOTAL PROTEIN 4.7 G/DL (6.0-8.5)
[2016-12-22 04:56] LABS: ALKALINE PHOSPHATASE 391 U/L (45-117); CALCIUM, SERUM 6.5 MG/DL (8.5-10.4); PHOSPHORUS, SERUM 1.5 MG/DL (2.5-4.5)
[2016-12-23 05:31] LABS: BASOPHILS 0 %; EOSINOPHILS 0 %; HEMATOCRIT 27.5 % (36.0-48.0); HEMOGLOBIN 8.6 g/dL (12.0-16.0); IMMATURE GRANULOCYTES 0.8 %; IMMATURE GRANULOCYTES ABSOLUTE 0.05 10/3/uL (0.0-0.11); MANUAL DIFF NO %; MEAN CORPUS HGB CONC 31.3 g/dL (32.0-36.0); MEAN CORPUSCULAR HEMOGLOB 26.9 pg (26.0-34.0); MEAN CORPUSCULAR VOLUME 85.9 fL (80-100); MONOCYTES 11.5 %; MONOCYTES ABSOLUTE 0.69 10/3/uL (0.21-1.20); NEUTROPHILS 77.7 %; NEUTROPHILS ABSOLUTE 4.68 10/3/uL (2.02-8.40); PLATELET COUNT 10 10/3/uL (150-400); RBC DISTRIBUTION WIDTH 20.9 % (12.0-16.0)
[2016-12-23 05:52] LABS: ALBUMIN 1.6 G/DL (3.5-5.0); BUN (BLOOD UREA NITROGEN) 11 MG/DL (6-23); CHLORIDE, SERUM 110 MMOL/L (96-112); CO2 (CARBON DIOXIDE) 28 MMOL/L (24-34); GFR AFRICAN AMERICAN 92 ML/MIN (>=60); GFR NON AFRICAN AMERICAN 80 ML/MIN (>=60); GLUCOSE, SERUM 96 MG/DL (60-99); PHOSPHORUS, SERUM 1.5 MG/DL (2.5-4.5); POTASSIUM, SERUM 3.6 MMOL/L (3.5-5.3); SODIUM, SERUM 143 MMOL/L (135-148)
[2016-12-23 05:53] LABS: CALCIUM, SERUM 6.2 MG/DL (8.5-10.4)
[2016-12-23 05:55] LABS: IMMATURE GRANS ABSOLUTE (CALC) 0.06 10/3/uL (0.0-0.11); LYMPHOCYTES 11 %; LYMPHOCYTES ABSOLUTE (CALC) 0.66 10/3/uL (0.67-4.30); METAMYELOCYTES 1 %; MONOCYTES 5 %; NEUTROPHILS ABSOLUTE (CALC) 4.98 10/3/uL (2.02-8.40); SEGMENTED NEUTROPHIL (0) 83 %; TOTAL NUCLEATED CELLS 100
[2016-12-23 05:56] LABS: ANISOCYTOSIS 1+ (5-10/OIF) (0-5/OIF)
[2016-12-24 07:27] LABS: BASOPHILS 0 %; EOSINOPHILS 0 %; HEMATOCRIT 28.2 % (36.0-48.0); HEMOGLOBIN 8.7 g/dL (12.0-16.0); IMMATURE GRANULOCYTES 0.5 %; IMMATURE GRANULOCYTES ABSOLUTE 0.03 10/3/uL (0.0-0.11); LYMPHOCYTES 11.1 %; LYMPHOCYTES ABSOLUTE 0.62 10/3/uL (0.67-4.30); MEAN CORPUS HGB CONC 30.9 g/dL (32.0-36.0); MEAN CORPUSCULAR HEMOGLOB 26.4 pg (26.0-34.0); MEAN CORPUSCULAR VOLUME 85.7 fL (80-100); MONOCYTES 13.2 %; MONOCYTES ABSOLUTE 0.74 10/3/uL (0.21-1.20); NEUTROPHILS 75.2 %; NEUTROPHILS ABSOLUTE 4.22 10/3/uL (2.02-8.40); RBC DISTRIBUTION WIDTH 21.3 % (12.0-16.0); RED CELL COUNT 3.29 10/6/uL (4.0-5.6); WHITE BLOOD CELLS 5.6 10/3/uL (4.5-10.5)
[2016-12-24 07:28] LABS: MANUAL DIFF NO %; PLATELET COUNT 34 10/3/uL (150-400)
[2016-12-24 07:29] LABS: BUN (BLOOD UREA NITROGEN) 9 MG/DL (6-23); CHLORIDE, SERUM 109 MMOL/L (96-112); CO2 (CARBON DIOXIDE) 28 MMOL/L (24-34); CREATININE 0.74 MG/DL (0.55-1.02); GFR AFRICAN AMERICAN 101 ML/MIN (>=60); GFR NON AFRICAN AMERICAN 87 ML/MIN (>=60); GLUCOSE, SERUM 85 MG/DL (60-99); POTASSIUM, SERUM 3.4 MMOL/L (3.5-5.3); SODIUM, SERUM 144 MMOL/L (135-148)
[2016-12-24 07:31] LABS: CALCIUM, SERUM 6.2 MG/DL (8.5-10.4)
[2016-12-24 07:44] LABS: ANISOCYTOSIS 1+ (5-10/OIF) (0-5/OIF); OVALOCYTES 1+ (3-10/OIF) (0-2/OIF)
== END 2016-12-24 18:42 | disposition home or self-care (01) | DRG 872 ==
LOC: ER 08:34 → 4SO 11:45 → 4EA 12-21 18:42
PROVIDERS: Internal Medicine; Nurse Practitioner; Nurse Practitioner Adult Health
DX: A41.9 Sepsis, unspecified organism (principal); J96.10 Chronic respiratory failure, unspecified whether with hypoxia or hypercapnia; D69.59 Other secondary thrombocytopenia; C79.51 Secondary malignant neoplasm of bone; C50.919 Malignant neoplasm of unspecified site of unspecified female breast; L03.315 Cellulitis of perineum; N39.0 Urinary tract infection, site not specified; T45.1X5A Adverse effect of antineoplastic and immunosuppressive drugs, initial encounter; N76.0 Acute vaginitis
CPT/HCPCS: 36415; 71010; 76775; 80048; 80053; 80069; 80076; 81001; 83605; 83735; 84145; 85025; 85610; 85730; 86850; 86900; 86901; 86920; 87040; 87077; 87086; 87186; 93005; 94640; 96374; 99285; A9270-GY; J2405; J3370; P9016; P9035

== ENCOUNTER 2017-01-03 06:13 | Emergency (ER) | payer BC ==
[~2017-01-03 06:13] MED LIST changes: +REG PO
[2017-01-03 06:56] LABS: BASOPHILS 0 %; EOSINOPHILS 0 %; HEMOGLOBIN 7.4 g/dL (12.0-16.0); LYMPHOCYTES 10.2 %; LYMPHOCYTES ABSOLUTE 0.11 10/3/uL (0.67-4.30); MEAN CORPUSCULAR HEMOGLOB 27.8 pg (26.0-34.0); MEAN PLATELET VOLUME 11.1 fL (9.2-13.0); MONOCYTES 0.9 %; MONOCYTES ABSOLUTE 0.01 10/3/uL (0.21-1.20); NEUTROPHILS 88.9 %; NEUTROPHILS ABSOLUTE 0.96 10/3/uL (2.02-8.40); RED CELL COUNT 2.66 10/6/uL (4.0-5.6)
[2017-01-03 06:58] LABS: ER CBC TAT 0 Hrs 09 Mins; HEMATOCRIT 23.9 % (36.0-48.0); MANUAL DIFF NO %; MEAN CORPUSCULAR VOLUME 89.8 fL (80-100); PLATELET COUNT 86 10/3/uL (150-400); RBC DISTRIBUTION WIDTH 25.7 % (12.0-16.0); WHITE BLOOD CELLS 1.1 10/3/uL (4.5-10.5)
[2017-01-03 07:05] LABS: INTERNATIONAL NORMAL RATI 2.7 UNITS (-); PARTIAL THROMBO TIME 56.5 SEC (22.5-37.2)
[2017-01-03 07:06] LABS: PROTIME (NOT ORD) 28.5 SEC (12.0-14.5)
[2017-01-03 07:11] LABS: BUN (BLOOD UREA NITROGEN) 84 MG/DL (6-23); CHEST PAIN PROFILE TAT 0 Hrs 22 Mins; CHLORIDE, SERUM 96 MMOL/L (96-112); CO2 (CARBON DIOXIDE) 11 MMOL/L (24-34); CREATININE 4.05 MG/DL (0.55-1.02); GFR AFRICAN AMERICAN 13 ML/MIN (>=60); GFR NON AFRICAN AMERICAN 11 ML/MIN (>=60); GLUCOSE, SERUM 251 MG/DL (60-99); POTASSIUM, SERUM 7.9 MMOL/L (3.5-5.3); SODIUM, SERUM 134 MMOL/L (135-148); TROPONIN I 0.07 NG/ML (<0.05)
[2017-01-03 07:18] LABS: BAND NEUTROPHILS 8 %; ER DIFF TAT 0 Hrs 29 Mins; LYMPHOCYTES 12 %; LYMPHOCYTES ABSOLUTE (CALC) 0.13 10/3/uL (0.67-4.30); NEUTROPHILS ABSOLUTE (CALC) 0.97 10/3/uL (2.02-8.40); PLATELET ESTIMATE DEC (ADEQUATE); SEGMENTED NEUTROPHIL (0) 80 %; TOTAL NUCLEATED CELLS 25
== END 2017-01-03 12:22 | disposition expired ==
LOC: ER 06:13
PROVIDERS: Hospitalist
PROC: 06HM33Z Insertion of Infusion Device into Right Femoral Vein, Percutaneous Approach (ICD-10-PCS; principal; 2017-01-03)
DX: J96.90 Respiratory failure, unspecified, unspecified whether with hypoxia or hypercapnia (principal); E87.5 Hyperkalemia; I47.2 Ventricular tachycardia; E87.2 Acidosis; K21.9 Gastro-esophageal reflux disease without esophagitis; Z85.3 Personal history of malignant neoplasm of breast; Z85.118 Personal history of other malignant neoplasm of bronchus and lung; Z88.0 Allergy status to penicillin; Z88.1 Allergy status to other antibiotic agents; Z88.5 Allergy status to narcotic agent; Z88.8 Allergy status to other drugs, medicaments and biological substances; Z79.899 Other long term (current) drug therapy
CPT/HCPCS: 31720; 36600; 80048; 82330; 82803; 82947; 83735; 84132; 84295; 84484; 85014; 85025; 85610; 85730; 93005; 94002; 96374; 96375; 99291; 99292; A9270-GY; C1751; J0282